=== PATIENT | female | born 1975 | race Caucasian/White ===

== ENCOUNTER 2017-12-01 21:18 | Emergency (ER) | payer MEDICAID, SELFPAY ==
[2017-12-01 21:19] VITALS: BP 164/116; PULSE 102; RESP 18; TEMP 36.4; O2SAT 98; BMI 38.7
--- NOTE | 2017-12-01 21:28 | RAD_ITS ---
STUDY: X-RAY - RIGHT HAND REASON FOR EXAM: Female, 42 years old. Injury, pain TECHNIQUE: 3 view(s) of the hand. COMPARISON: None. FINDINGS: The scaphoid appears resected. There is no acute fracture. There is no osseous destruction. RAD/Hand Min 3 Views IMPRESSION: No acute fracture Evidence of scaphoid resection Electronically Signed: Nirav Haas MD at 21:58 EDT Tel , Service support ,
[2017-12-01] MEDS: fentaNYL 100 MCG/2 ML Ampul 50 MCG IM (21:59)
[2017-12-01] MEDS: Ondansetron ODT 4 MG Tablet PO ×2 (21:59→22:56)
[2017-12-01 22:02] VITALS: PULSE 105; RESP 22; O2SAT 98
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
[2017-12-01] MEDS: oxyCODONE 5 MG Tablet 10 MG PO (22:45)
[2017-12-01] MEDS: oxyCODONE 5 MG Tablet PO (22:46)
[2017-12-01 22:56] VITALS: BP 156/94; PULSE 101; RESP 22; O2SAT 98
== END 2017-12-01 22:57 | disposition home or self-care (01) ==
LOC: ED 21:42
PROVIDERS: Emergency Provider Emergency Medicine
DX: M79.641 Pain in right hand (principal); S67.01XA Crushing injury of right thumb, initial encounter; W23.0XXA Caught, crushed, jammed, or pinched between moving objects, initial encounter; Y93.9 Activity, unspecified; Y92.89 Other specified places as the place of occurrence of the external cause; Y99.9 Unspecified external cause status; F17.200 Nicotine dependence, unspecified, uncomplicated
CPT/HCPCS: 73130; 96372; 99283

== ENCOUNTER 2017-12-04 16:06 | Emergency (ER) | payer MEDICAID, SELFPAY ==
[2017-12-04 16:07] VITALS: BP 126/98; PULSE 84; RESP 12; TEMP 36.6; O2SAT 98; BMI 37.5
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
--- NOTE | 2017-12-04 16:48 | ED.DEP ---
ED Disposition - Plan for ED Patient: Disposition: Home or Assisted Living Chief Complaint: Abscess Instructions: ED Hematoma Subungual Referrals: Care Physician,No Primary [Primary Care Provider] -
[2017-12-04 16:54] VITALS: RESP 16
--- NOTE | 2017-12-04 16:54 | ED.RN ---
REVIEWED D/C INSTRUCTIONS, FOLLOW UP CARE, AND S/S THAT WOULD WARRANT A RETURN TO THE ED WITH PT. PT VERBALIZED AN UNDERSTANDING AND DENIES FURTHER QUESTIONS FOR THIS RN. PT SKIN P/W/D, RESP EVEN AND UNLABORED, PT A&O X 3, NO DISTRESS NOTED. PT AMBULATED OUT OF ED, GAIT STEADY.
== END 2017-12-04 16:55 | disposition home or self-care (01) ==
LOC: ED 16:55
PROVIDERS: Emergency Provider Emergency Medicine
DX: S60.111D Contusion of right thumb with damage to nail, subsequent encounter (principal); W23.0XXD Caught, crushed, jammed, or pinched between moving objects, subsequent encounter; K21.9 Gastro-esophageal reflux disease without esophagitis; Z72.0 Tobacco use
CPT/HCPCS: 99282

== ENCOUNTER 2019-05-14 15:09 | Emergency (ER) | payer MEDICAID, SELFPAY ==
[2019-05-14 15:12] VITALS: BP 161/105; PULSE 98; RESP 18; TEMP 36.7; O2SAT 99; BMI 299.4
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
[2019-05-14] MEDS: Silver Sulfadiazine 1% Crm 50 gm Bottle 1 APPLIC TOPICAL (15:47)
[2019-05-14] MEDS: oxyCODONE 5 MG Tablet 10 MG PO (15:48)
[2019-05-14 16:02] VITALS: RESP 16
== END 2019-05-14 16:06 | disposition home or self-care (01) ==
LOC: ED 15:33
PROVIDERS: Emergency Provider Emergency Medicine; Family Provider Internal Medicine; PCP Internal Medicine
DX: T21.11XA Burn of first degree of chest wall, initial encounter (principal); T20.17XA Burn of first degree of neck, initial encounter; X12.XXXA Contact with other hot fluids, initial encounter; Y92.9 Unspecified place or not applicable; Y99.9 Unspecified external cause status; F17.200 Nicotine dependence, unspecified, uncomplicated; Z82.49 Family history of ischemic heart disease and other diseases of the circulatory system; Z88.0 Allergy status to penicillin; Z88.1 Allergy status to other antibiotic agents; Z88.5 Allergy status to narcotic agent
CPT/HCPCS: 99282

== ENCOUNTER 2019-08-16 10:44 | Emergency (ER) | payer MEDICAID, SELFPAY ==
[2019-08-16 10:44] VITALS: BP 161/103; PULSE 88; RESP 18; TEMP 36.6; O2SAT 98; BMI 34.5
--- NOTE | 2019-08-16 11:52 | ED.VIS.GEN ---
History of Present Illness Chief Complaint: Abd Pain Onset: Yesterday Narrative: Patient presents with upper abdominal pain. She tells me that for 10 years she has been diagnosed with a hiatal hernia. She tells me that yesterday she awoke with some discomfort in her epigastrium. She ate [employer] for lunch and afterwards still felt very hungry. She states that feels like there is a brick in her epigastrium that radiates into her back. She notes a tight band sensation extending from her epigastrium across the lower ribs. she is made herself vomit hoping that would help but it did not. No fevers. She had some diarrhea yesterday but none today. Patient still has her gallbladder. She has had prior ventral hernia repair and appendectomy. She sees Dr. Cid for general surgery. She denies any history of pancreatitis. Past Medical History - Allergies and Home Meds Allergies/Adverse Reactions: Allergies codeine Allergy (Verified 08/16/19 10:48) Anaphylaxis erythromycin base Allergy (Verified 08/16/19 10:48) Hives hydrocodone bitartrate [From Vicodin] Allergy (Verified 08/16/19 10:48) Anaphylaxis Penicillins Allergy (Verified 08/16/19 10:48) Rash morphine Adverse Reaction (Verified 08/16/19 10:48) Other JUST GETS EXTRA LOOPY Primary Care Physician: Rosa Maria Romero MD [Primary Care Provider] - As Needed Surgical History: noncontributory Smoking Status: Current some day smoker - Family History Maternal Family History: Family History (Last Reviewed 11/30/17 @ 10:16 by Dano Cid MD) Mother Arthritis Malignant hyperthermia due to anesthesia Daughter Asthma Father Arthritis Hypertension Family History: Reports: No pertinent history Paternal Family History: Family History (Last Reviewed 11/30/17 @ 10:16 by Dano Cid MD) Mother Arthritis Malignant hyperthermia due to anesthesia Daughter Asthma Father Arthritis Hypertension Family History: Reports: No pertinent history Sibling Family History: Family History (Last Reviewed 11/30/17 @ 10:16 by Dano Cid MD) Mother Arthritis Malignant hyperthermia due to anesthesia Daughter Asthma Father Arthritis Hypertension Family History: Reports: No pertinent history Review of Systems General: Denies: Chills, Fever, Sweats Eyes: Denies: Visual changes - bilaterally, Diplopia ENT: Denies: Rhinorrhea, Sore throat Cardiovascular: Denies: Chest pain, Palpitations Respiratory: Denies: Dyspnea, Cough, Dyspnea on exertion Gastrointestinal: Reports: Abdominal pain, Nausea, Vomiting, Diarrhea. Denies: Melena, Hematochezia Genitourinary: Denies: Dysuria, Hematuria, Frequency Musculoskeletal: Denies: Back pain, Extremity Pain Skin: Denies: Rash, Wounds Neurological: Denies: Headache, Weakness, Numbness Physical Exam Vital Signs/Narrative: Vital Signs Temp Pulse Resp BP Pulse Ox 08/16/19 10:44 97.8 F 88 18 161/103 H 98 Inital Vital Signs reviewed: Yes General: Well nourished, Well developed, Obese, No Acute Distress Head: Normocephalic, Atraumatic Eyes: Perrl, EOMI ENT: Moist mucous membranes, No rhinorrhea Neck: Supple, Nontender Cardiovascular: Regular rate, Regular rhythm, No murmurs Respiratory: No distress, CTA bilaterally, Chest nontender Abdomen: Soft, Nondistended, Normal bowel sounds, Tender Back: Nontender, Normal Inspection Extremities: Nontender, No edema Skin: Normal color, No rash Neurological: Alert, Oriented x3, Cranial nerves II-XII grossly intact, Normal Strength, Normal Sensation Psychological: Normal affect, Normal Mood Diagnostic/Tx/Re-eval - Medical Decision Making Basic labs were negative. CT abdomen pelvis does not show anything to explain the patient's pain. Will prescribe Carafate. She is already on Zantac and omeprazole. The patient did get some relief with GI cocktail. She is to talk with her surgeon about possible EGD. ED Disposition - Plan for ED Patient: Disposition: Home or Assisted Living Diagnosis: Abdominal pain Instructions: GASTRITIS vs. ULCER Prescriptions: Sucralfate [Carafate] 1 gm PO 4X/DAY #56 tab Prescription Printed Referrals: Rosa Maria Romero MD [Primary Care Provider] - As Needed
[2019-08-16] MEDS: Mag Hydrox/Al Hydrox/Simeth 30 ML UDC PO (11:57)
[2019-08-16 12:22] LABS: Absolute Lymphocyte Count 2.63 X10^3/uL (0.83-4.51); Absolute Neutrophil Count 9.3 X10^3/uL (2.0-7.7); Basophil# 0.03 X10^3/uL; Basophil% 0.2 % (0-1); Eosinophil# 0.39 X10^3/uL; Hematocrit 46.6 % (37-47); Lymphocyte # 2.63 X10^3/ul (4.0); Lymphocyte % 20.2 % (19-41); Mean Corp Hgb Conc 32.2 g/dL (32-36); Mean Corpuscular Hgb 30.1 pg (27.0-32.0); Mean Corpuscular Volume 93.4 fL (81-99); Monocyte# 0.59 X10^3/uL; Monocyte% 4.5 % (0-10); NRBC Flagged by Analyzer 0 % (0-5); Neutrophil # 9.33 X10^3/uL (2.7-7.7); Neutrophil % 71.6 % (47-70); Platelet Count 279 K/mm3 (150-450); RBC Distribution Width CV 13.4 % (11.6-14.6); RBC Distribution Width SD 45.9 fl (35.1-43.9); Red Blood Count 4.99 M/mm3 (4.2-5.4)
[2019-08-16 12:37] LABS: Internal QC Validated? YES +Cl - CLEAR BKGD; Pregnancy, Serum, hCG Quali. NEGATIVE Negative
[2019-08-16 12:50] LABS: ALB/GLOB Ratio 0.9 RATIO (0.9-2.4); AST(SGOT) 16 U/L (15-37); Alanine Aminotransfer ALT/SGPT 29 U/L (12-78); Albumin, Serum 3.7 g/dL (3.4-5.0); Alkaline Phosphatase 68 U/L (50-136); Anion Gap 4 (5-15); BUN 8 mg/dL (7-18); BUN/Creat Ratio 10.6 RATIO (10-20); Calcium,Total 9.6 mg/dL (8.5-10.1); Chloride 108 mmol/L (98-107); Creatinine, Serum 0.75 mg/dL (0.55-1.20); EST Glomerular Filtration Rate 90 mL/min (>60); Est Glom Filt Rate - Afr Amer 108 mL/min (>60); Estimated Creatinine Clearance 109.22 ml/min; Globulin 4.2 g/dL (2.3-3.5); Glucose 85 mg/dL (70-110); Lipase 125 U/L (73-393); Potassium 4.1 mmol/L (3.5-5.1); Protein, Total 7.9 g/dL (6.4-8.2); Sodium Level 138 mmol/L (136-145)
--- NOTE | 2019-08-16 13:00 | CT_ITS ---
STUDY: CT ABDOMEN AND PELVIS WITHOUT CONTRAST REASON FOR EXAM: Female, 44 years old. UPPER ABDOMINAL PAIN. RADIATION DOSAGE (If Supplied By Facility): CTDIvol = ( 14.68 ) mGy, DLP = ( 1050.09 ) mGycm TECHNIQUE: Transaxial images were obtained from the dome of the diaphragm to the symphysis pubis without oral contrast, and without intravenous contrast. Sagittal and coronal images were reconstructed. Individualized dose optimization techniques were used for this CT. COMPARISON: Comparison is made with prior study dated July 31, 2017. FINDINGS: The visualized lung bases are unremarkable. The visualized portions of the heart are within normal limits. Normal liver. Normal gallbladder and extrahepatic biliary system. Normal spleen. Normal pancreas. Normal bilateral adrenal glands. Normal right kidney. Normal left kidney. Normal visualized stomach. Normal small intestine. Normal colon. The appendix is visualized and appears normal. Normal abdominal aorta. Normal inferior vena cava. There is borderline retroperitoneal lymphadenopathy with enlarged nodes no greater than 10mm in the short axis diameter. Normal urinary bladder. IUD is seen within the endometrium. Small benign-appearing bilateral inguinal lymph nodes. There is a small umbilical hernia containing fat. The hernial sac measures 3.3 cm in transverse dimension. There is evidence of an anterior ventral hernia repair with mesh just distal to the umbilicus. Normal osseous structures. CT/Abdomen/Pelvis W IV Cont ONLY IMPRESSION: Umbilical hernia just cephalad to the hernial mesh. Electronically Signed: Benjamin Tomlinson, at 14:06 EST , Service support ,
[2019-08-16] MEDS: Ibuprofen 600 MG Tablet PO (14:09)
[2019-08-16 14:57] VITALS: BP 145/84; PULSE 73; RESP 16; O2SAT 99
== END 2019-08-16 14:58 | disposition home or self-care (01) ==
PROVIDERS: Emergency Provider Emergency Medicine; PCP Internal Medicine
DX: R10.10 Upper abdominal pain, unspecified (principal); F17.200 Nicotine dependence, unspecified, uncomplicated
CPT/HCPCS: 74177; 80053; 83605; 83690; 84703; 85025; 99283; Q9967; A4216

== ENCOUNTER 2023-09-04 23:19 | Emergency (ER) | payer MEDICAID, SELFPAY ==
--- NOTE | 2023-09-04 00:15 | RAD_ITS ---
INDICATION: trauma EXAMINATION/TECHNIQUE: X-RAY - RIGHT XR Femur Min 2 Views 5 VIEWS COMPARISON: No relevant prior comparison study available FINDINGS: SOFT TISSUES: No soft tissue swelling or gas. No radiopaque foreign body. BONES/JOINTS: No acute fracture or subluxation.. Normal alignment. Preservation of the joint space. Knee joint effusion suspected.. No sclerotic or destructive changes observed. RAD/Femur Min 2 Views IMPRESSION: No fracture or malalignment. Knee joint effusion suspected. Electronically Signed: Sourav Zambrano MD at 1:27 EST ,
[2023-09-04 23:20] VITALS: BP 168/106; PULSE 119; RESP 24; TEMP 36.8; O2SAT 94; BMI 37.5
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
[2023-09-04] MEDS: Ondansetron ODT 4 MG Tablet PO (23:32)
[2023-09-04] MEDS: Ketorolac 60 MG/2 ML Vial IM (23:32)
--- OUTSIDE RECORDS SUMMARY | 2023-09-04 23:47 | XMS RPT_ITS | CCD ---
Author Name Unknown Address [address] [place] [address] Organization [facility] Care Team Providers Care Machine Ii Coremaker Name Role Phone Yris Romero MD Primary Care Provider TALAMPAS, YRIS D Primary Care Unavailable TALAMPAS, YRIS D Attending Unavailable DANO CID Attending Unavailable TALAMPAS, YRIS D Primary Care Unavailable TALAMPAS, YRIS D Primary Care Unavailable LENORA, MARCELLE Referring Unavailable TALAMPAS, YRIS D Primary Care Unavailable LENORA, MARCELLE Referring Unavailable LENORA, MARCELLE Referring Unavailable TALAMPAS, YRIS D Primary Care Unavailable TALAMPAS, YRIS D Primary Care Unavailable LENORA, MARCELLE Attending Unavailable TALAMPAS, YRIS D Primary Care Unavailable LENORA, MARCELLE Attending Unavailable CHRISSY, DANO P Referring Unavailable TALAMPAS, YRIS D Primary Care Unavailable CHRISSYDANO P Attending Unavailable TALAMPAS, YRIS D Primary Care Unavailable TALAMPAS, YRIS D Referring Unavailable TALAMPAS, YRIS D Referring Unavailable TALAMPAS, YRIS D Primary Care Unavailable TALAMPAS, YRIS D Primary Care Unavailable TALAMPAS, YRIS D Attending Unavailable TALAMPAS, YRIS D Primary Care Unavailable TALAMPAS, YRIS D Attending Unavailable TALAMPAS, YRIS D Primary Care Unavailable STEPHANIE NOVA Attending Unavailable Yris Romero MD Primary Care Provider Allergies Allergy Classification Reported Allergen(s) Allergy Type Date of Onset Reaction(s) Facility (20 sources) Acetaminophen / HYDROcodone; Translations: [HYDROCODONE-ACET AMINOPHEN] Drug Allergy 8 Shortness of Breath [facility] Work Phone: (20 sources) Chlorhexidine; Translations: [CHLORHEXIDINE GLUCONATE] Drug Allergy 2 Other: See Comments [facility] (20 sources) Codeine; Translations: [CODEINE] Drug Allergy 6 [facility] Work Phone: (20 sources) egg extract; Translations: [EGG] Drug Allergy 8 GI Upset [facility] (20 sources) Erythromycin; Translations: [ERYTHROMYCIN] Drug Allergy 0 [facility] Work Phone: (20 sources) fentaNYL; Translations: [FENTANYL] Drug Allergy 5 GI Upset [facility] (20 sources) Grass pollen; Translations: [GRASS POLLEN] Drug Allergy 0 Shortness of Breath [facility] Work Phone: (20 sources) Morphine; Translations: [MORPHINE] Drug Allergy 9 Mental Status Change [facility] (3 sources) Penicillins; Translations: [PENICILLINS] Propensity to adverse reactions 6 Rash [facility] Work Phone: (20 sources) Sulfonamides (Antibiotic); Translations: [SULFA (SULFONAMIDE ANTIBIOTICS)] Drug Allergy 5 Mental Status Change [facility] (20 sources) Bee Sting; Translations: [BEE STING] Allergy to substance 0 Swelling [facility] Work Phone: (20 sources) Penicillins Propensity to adverse reactions 6 [facility] Work Phone: Medications Current Medications Medication Drug Class(es) Dates Sig (Normalized) Sig (Original) cholecalciferol 0.01 mg oral tablet (20 sources) Vitamin D Start: 07-24-2021 End: 06-13-2024 take 2 tablets by mouth once daily cholecalciferol (VITAMIN D3) 400 unit tab Take 2 tablets by mouth once daily. 60 tablet 11 06/14/2023 06/13/2024 Active Completed/Discontinued Medications Medication Drug Class(es) Dates Sig (Normalized) Sig (Original) acetaminophen 325 mg / oxyCODONE hydrochloride 5 mg oral tablet (2 sources) Opioid Agonist Start: 11-03-2022 End: 11-06-2022 take 1 tablet by mouth every eight hours as needed for pain oxyCODONE-acetami nophen (PERCOCET) 5-325 mg tablet Indications: Post-op pain , S/P hernia repair Take 1 tablet by mouth every 8 hours as needed for pain for up to 3 days. 5 tablet 0 11/03/2022 11/06/2022 Problems Active Problems Problem Classification Problem Date Documented Date Episodic/Chronic Anxiety disorders (20 sources) Anxiety disorder; Translations: [Anxiety disorder, unspecified] Onset: 05-13-2010 05-13-2010 Chronic Diseases of white blood cells (20 sources) Leukocytosis; Translations: [Elevated white blood cell count, unspecified] Onset: 08-06-2021 08-06-2021 Chronic Disorders usually diagnosed in infancy, childhood, or adolescence (20 sources) Attention deficit hyperactivity disorder, predominantly inattentive type; Translations: [Other specified behavioral and emotional disorders with onset usually occurring in childhood and adolescence] Onset: 12-24-2010 08-06-2021 Chronic Esophageal disorders (20 sources) Gastro-esophageal reflux disease with esophagitis; Translations: [Gastroesophageal reflux disease with esophagitis] Onset: 12-05-2009 Chronic Malaise and fatigue (1 source) Fatigue; Translations: [Chronic fatigue, unspecified] Chronic Menopausal disorders (20 sources) Abnormal perimenopausal bleeding; Translations: [Excessive bleeding in the premenopausal period] Onset: 06-01-2013 06-01-2013 Chronic Nausea and vomiting (2 sources) Nausea; Translations: [Nausea] Episodic Other endocrine disorders (20 sources) Polycystic ovary syndrome; Translations: [Polycystic ovarian syndrome] Onset: 02-20-2011 02-20-2011 Chronic Other nervous system disorders (1 source) Postoperative pain ; Translations: [Other acute postprocedural pain] Episodic Other nutritional; endocrine; and metabolic disorders (18 sources) Obesity; Translations: [Other obesity due to excess calories] Onset: 05-13-2010 08-06-2021 Chronic Other nutritional; endocrine; and metabolic disorders (2 sources) Excess panniculus of abdomen; Translations: [Localized adiposity] Chronic Other nutritional; endocrine; and metabolic disorders (6 sources) Obesity caused by energy imbalance; Translations: [Other obesity due to excess calories] Onset: 05-13-2010 08-06-2021 Chronic Other nutritional; endocrine; and metabolic disorders (1 source) Localized adiposity; Translations: [Abdominal pannus] Onset: 09-18-2022 Chronic Residual codes; unclassified (1 source) Body fluid retention; Translations: [Edema, unspecified] Episodic Residual codes; unclassified (1 source) History of hernia repair; Translations: [Other specified postprocedural states] Episodic Substance-related disorders (20 sources) Smoker; Translations: [Nicotine dependence, unspecified, uncomplicated] Onset: 08-06-2021 08-06-2021 Chronic Past or Other Problems Problem Classification Problem Date Documented Da te Episodic/Chronic Abdominal hernia (3 sources) Umbilical hernia; Translations: [Umbilical hernia without obstruction or gangrene] Onset: 09-18-2022 Episodic Abdominal pain (1 source) Unspecified abdominal pain; Translations: [Abdominal cramping] Onset: 11-20-2022 Episodic Complications of surgical procedures or medical care (1 source) Infection following a procedure, other surgical site, initial encounter; Translations: [Incisional infection] Onset: 11-20-2022 Episodic Other aftercare (1 source) Encounter for other specified aftercare; Translations: [Aftercare] Onset: 11-26-2022 Episodic Other aftercare (1 source) Other ferry terminal agent (current) drug therapy; Translations: [Encounter for long-term current use of medication] Onset: 09-15-2022 Episodic Other gastrointestinal disorders (1 source) Personal history of other diseases of the digestive system; Translations: [S/P hernia repair] Onset: 11-20-2022 Episodic Other nervous system disorders (1 source) Other acute postprocedural pain; Translations: [Post-op pain] Onset: 11-20-2022 Episodic Other screening for suspected conditions (not mental disorders or infectious disease) (7 sources) Patient encounter status; Translations: [Encounter for screening mammogram for malignant neoplasm of breast] Onset: 09-15-2022 Episodic Peritonitis and intestinal abscess (2 sources) Infectious disease of abdomen; Translations: [Peritonitis, unspecified] Onset: 11-20-2022 11-20-2022 Episodic Residual codes; unclassified (1 source) Other specified postprocedural states; Translations: [S/P hernia repair] Onset: 11-20-2022 Episodic Varicose veins of lower extremity (20 sources) Pain co-occurrent and due to varicose veins of left leg; Translations: [Varicose veins of left lower extremity with pain] Onset: 08-06-2021 08-06-2021 Episodic Results Test Name Value Interpretation Reference Range Facil ity Vital Signs Date Time Vital Sign Value Performing Clinician Eladio becerril 03-16-2023 11:48-0400 Diastolic blood pressure 98 mm[Hg] Stephanie Avtar DOOR CORE ASSEMBLER.REGISTERED ASSOCIATE Work Phone: [facility] 03-16-2023 11:48-0400 Systolic blood pressure 140 mm[Hg] Stephanie Avtar DOOR CORE ASSEMBLER.REGISTERED ASSOCIATE Work Phone: [facility] 03-16-2023 11:46-0400 Body weight 117.94 kg Stephanie Avtar DOOR CORE ASSEMBLER.REGISTERED ASSOCIATE Work Phone: [facility] 03-16-2023 11:46-0400 Heart rate 101 /min Stephanie Avtar DOOR CORE ASSEMBLER.REGISTERED ASSOCIATE Work Phone: [facility] 03-16-2023 11:46-0400 SaO2% (BldA) [Mass fraction] 98 % Stephanie Avtar DOOR CORE ASSEMBLER.REGISTERED ASSOCIATE Work Phone: [facility] 11-03-2022 09:10-0400 Body height 180.3 cm Marcelle Morehouse PA-C Work Phone: [facility] 11-03-2022 09:10-0400 Body temperature 97.5 [degF] Marcelle Morehouse PA-C Work Phone: [facility] 11-03-2022 09:10-0400 Body weight 113.4 kg Marcelle Morehouse PA-C Work Phone: [facility] 11-03-2022 09:10-0400 Diastolic blood pressure 85 mm[Hg] Marcelle Lenora PA-C Work Phone: [facility] 11-03-2022 09:10-0400 Heart rate 106 /min Marcelle Lenora PA-C Work Phone: [facility] 11-03-2022 09:10-0400 SaO2% (BldA) [Mass fraction] 98 % Marcelle Lenora PA-C Work Phone: [facility] 11-03-2022 09:10-0400 Systolic blood pressure 140 mm[Hg] Marcelle Cooley PA-C Work Phone: [facility] 10-22-2022 12:35-0400 Body height 180.3 cm [facility] 10-22-2022 12:35-0400 Body weight 113.4 kg [facility] 09-18-2022 10:02-0500 Body height 177.8 cm Dano Cid MD Work Phone: [facility] 09-18-2022 10:02-0500 Body temperature 97.2 [degF] Dano Cid MD Work Phone: [facility] 09-18-2022 10:02-0500 Body weight 117.94 kg Dano Cid MD Work Phone: [facility] 09-18-2022 10:02-0500 Diastolic blood pressure 88 mm[Hg] Dano Cid MD Work Phone: [facility] 09-18-2022 10:02-0500 Heart rate 110 /min Dano Cid MD Work Phone: [facility] 09-18-2022 10:02-0500 SaO2% (BldA) [Mass fraction] 97 % Dano Cid MD Work Phone: [facility] 09-18-2022 10:02-0500 Systolic blood pressure 158 mm[Hg] Dano Cid MD Work Phone: [facility] 09-15-2022 08:02-0500 Body temperature 96.3 [degF] Yris Romero MD Work Phone: [facility] 09-15-2022 08:02-0500 Body weight 119.3 kg Yris Romero MD Work Phone: [facility] 09-15-2022 08:02-0500 Diastolic blood pressure 88 mm[Hg] Yris Romero MD Work Phone: [facility] 09-15-2022 08:02-0500 Heart rate 89 /min Yris Romero MD Work Phone: [facility] 09-15-2022 08:02-0500 Respiratory rate 18 /min Yris Romero MD Work Phone: [facility] 09-15-2022 08:02-0500 SaO2% (BldA) [Mass fraction] 98 % Yris Romero MD Work Phone: [facility] 09-15-2022 08:02-0500 Systolic blood pressure 152 mm[Hg] Yris Romero MD Work Phone: [facility] 03-24-2022 08:02-0400 Body weight 114.31 kg Yris Romero MD Work Phone: [facility] 03-24-2022 08:02-0400 Diastolic blood pressure 88 mm[Hg] Yris Romero MD Work Phone: [facility] 03-24-2022 08:02-0400 Heart rate 84 /min Yris Romero MD Work Phone: [facility] 03-24-2022 08:02-0400 SaO2% (BldA) [Mass fraction] 97 % Yris Romero MD Work Phone: [facility] 03-24-2022 08:02-0400 Systolic blood pressure 136 mm[Hg] Yris Romero MD Work Phone: [facility] Encounters Encounter Date Encounter Type Care Provider Facility Start: 08-20-2023 Refill Yris grossman MD Work Phone: [facility] [place] Procedures Date Procedure Procedure Detail Performing Clinician Start: 11-20-2022 Ct abdomen & pelvis w/contrast material Marcelle Cooley PA-C Work Phone: Start: 09-15-2022 Lipid 1996 panel - S candido or Plasma Stephanie Nova DOOR CORE ASSEMBLER.REGISTERED ASSOCIATE Work Phone: Start: 03-31-2021 Adult depression screening assessment Yris Romero MD Work Phone: Plan of Treatment Date Care Activity Detail Author Start: 10-21-2028 Urine microalbumin profile [facility] Start: 09-16-2027 Lipid 1996 panel - S candido or Plasma Lipid Screening [facility] Start: 09-16-2027 Lipid panel Lipid Screening [facility] Start: 09-16-2027 LIPID SCREEN LIPID SCREEN [facility] Start: 11-20-2025 DIABETES SCREEN DIABETES SCREEN [facility] Start: 11-20-2025 Diabetes Screening Diabetes Screenin g [facility] Start: 09-15-2025 DIABETES SCREEN DIABETES SCREEN [facility] Start: 08-06-2024 DIABETES SCREEN DIABETES SCREEN [facility] Start: 12-16-2023 HEPATITIS B (1 of 3 - 3-dose series) HEPATITIS B (1 of 3 - 3-dose series) [facility] Immunizations Immunization Date Immunization Notes Care Provider Winnie arteaga 03-24-2022 pneumococcal (PCV20) vaccine, 20 valent (PREVNAR 20) Yris Romero MD Work Phone: [facility] 03-24-2022 pneumococcal Conjuga te, unspecified formulation Yris Romero MD Work Phone: [facility] Work Phone: 09-25-2020 influenza, injectabl e, quadrivalent, contains preservative Yris Romero MD Work Phone: [facility] 09-25-2020 influenza virus vacc ine, unspecified formulation Stephanie Nova APRN.CNP Work Phone: [facility] 03-16-2019 Influenza, injectabl e, Madin Mary Canine Kidney, preservative free, quadrivalent Yris Romero MD Work Phone: [facility] 10-21-2018 pneumococcal polysaccharide vaccine, 23 valent Yris Romero MD Work Phone: [facility] 10-21-2018 tetanus toxoid, redu fatmata diphtheria toxoid, and acellular pertussis vaccine, adsorbed Yris Romero MD Work Phone: [facility] 04-17-2018 Influenza, injectabl e, Madin Mary Canine Kidney, preservative free, quadrivalent Yris Romero MD Work Phone: [facility] 02-22-2017 influenza, injectabl e, quadrivalent, preservative free Yris Romero MD Work Phone: [facility] 02-21-2016 influenza, injectabl e, quadrivalent, contains preservative Yris Romero MD Work Phone: [facility] 04-11-2015 influenza, injectabl e, quadrivalent, contains preservative Yris Romero MD Work Phone: [facility] 05-09-2014 influenza, injectabl e, quadrivalent, preservative free Yris Romero MD Work Phone: [facility] Work Phone: 05-27-2013 influenza virus vacc ine, unspecified formulation Yris Romero MD Work Phone: [facility] 06-28-2012 influenza virus vacc ine, unspecified formulation Yris Romero MD Work Phone: [facility] Work Phone: 06-16-2010 influenza virus vacc ine, unspecified formulation Yris Romero MD Work Phone: [facility] 05-16-2008 influenza virus vacc ine, unspecified formulation Yris Romero MD Work Phone: [facility] Work Phone: 07-30-2005 measles, mumps and rubella virus vaccine Yris Romero MD Work Phone: [facility] Work Phone: Payers Date Payer Category Payer Medicaid [id number] 2022 Medicaid [id number] 2013 Medicaid [facility] MEDICAID [id number] 2013-Present [phone] [address] [place] [address] Medicaid [id number] 2013 Medicaid [id number] Social History Date Type Detail Facility Start: 08-09-2014 End: 10-22-2022 Tobacco smoking status NHIS Occasional tobacco smoker [facility] Work Phone: History of tobacco use Cigarette Smoker C [facility] Work Phone: Start: 08-09-2014 End: 10-22-2022 Tobacco use and exposure Smokeless tobacco non-user [facility] Work Phone: Start: 09-23-2021 End: 06-14-2023 Alcohol intake Current drinker of alcohol (finding) [facility] Start: 04-02-2020 End: 06-16-2022 History SDOH Alcohol Frequency 2 [facility] Start: 12-25-2019 End: 06-16-2022 History SDOH Alcohol Std Drinks 1 [facility] Start: 04-02-2020 End: 06-16-2022 History SDOH Alcohol Binge 98 [facility] Start: 08-09-2014 History SDOH Alcohol Comment Occasionally [facility] Start: 04-02-2020 End: 06-16-2022 History SDOH Social Connections Phone 5 [facility] Start: 04-02-2020 End: 06-16-2022 History SDOH Social Connections Get Together 3 [facility] Start: 04-02-2020 History SDOH Social Connections Living 7 [facility] Start: 04-02-2020 History SDOH Physical Activity MPS 4 [facility] Start: 12-25-2019 Education 12 [facility] Start: 08-09-2014 End: 09-18-2022 Tobacco Comment Someday smoker [facility] Start: 1975 Sex Assigned At Female [facility] Start: 12-16-2021 End: 03-24-2022 Exposure to SARS-CoV-2 (event) Not sure [facility] Start: 06-16-2022 History SDOH Social Connections Living 8 [facility] Start: 10-22-2022 End: 11-20-2022 Alcohol intake [facility] Start: 10-22-2022 Tobacco Comment 3-4 days per week [facility] Start: 10-22-2022 Alcohol Comment 2-3 times per week [facility] Start: 06-16-2022 End: 11-20-2022 Social connection and isolation panel [facility] Do you belong to any clubs or organizations such as anglican groups, unions, fraternal or athletic groups, or school groups? Yes [facility] Are you now , , , , never or living with a partner? Living with partner [facility] How often to you hav e a drink containing alcohol? Monthly or less [facility] How many standard dr inks containing alcohol do you have on a typical day? 3 or 4 [facility] How often do you hav e 6 or more drinks on 1 occasion? Never [facility] How hard is it for y ou to pay for the very basics like food, housing, medical care, and heating Not hard at all [facility] Do you feel stress - tense, restless, nervous, or anxious, or unable to sleep at night because your mind is troubled all the time - these days [OSQ] Only a little [facility] (I/We) worried wheth er (my/our) food would run out before (I/we) got money to buy more. Never true [facility] In the past 12 month s, was there a time when you were not able to pay the mortgage or rent on time? No [facility] Start: 09-27-2019 Gender identity Identifies as female gender (finding) [facility] Start: 09-27-2019 Sexual orientation Heterosexual (finding) [facility] Medical Equipment Procedure Code Equipment Code Equipment Origin al Text Equipment Identifier Dates Mesh Parietex 8. 6cm Small Collagen Surgical Patch Self Center Composite - [id number] Start: 10-28-2022 Clinical Notes 08-08-2021 to 08-20-2023 Telephone Encounter - Yris Romero MD - 08/20/2023 6:37 PM ESTTelephone Encounter - Renetta Serrano LPN - 08/20/2023 2:56 PM Stephanie Srinivasan APRN.IESHA - 03/16/2023 12:00 PM EDT Note Date & Type Note Facility 08-20-2023 Miscellaneous Notes The following approved medication requests have been transmitted electronically. Requested Prescriptions Signed Prescriptions Disp Refills methylphenidate CD (METADATE CD) 40 mg biphasic capsule 30 capsule 0 Sig: Take 1 capsule by mouth once daily for 30 days. Do not start before August 21, 2023. Authorizing Provider: YRIS ROMERO MD Patient has been identified by name and date of : Patient phones for refill(s): Requested Prescriptions Pending Prescriptions Disp Refills methylphenidate CD (METADATE CD) 40 mg biphasic capsule 30 capsule 0 Sig: Take 1 capsule by mouth once daily for 30 days. Date of last office visit in primary care: 06/14/2023 Date of next office visit in primary care: 09/06/2023 [facility] has [facility] stock right now, not sure for how long. Please advise. Thank you. Renetta Serrano LPN. documented in this encounter [facility] 06-21-2023 Miscellaneous Notes Patient aware script sent to [facility] pharmacy. Attempted to reach pt to let her know medication was sent without success. No Voicemail set up. Try later. Sabiha Ingram LPN The following approved medication requests have been transmitted electronically. Requested Prescriptions Signed Prescriptions Disp Refills methylphenidate CD (METADATE CD) 40 mg biphasic capsule 30 capsule 0 Sig: Take 1 capsule by mouth once daily for 30 days. Authorizing Provider: YRIS ROMERO MD Patient reports [facility] is out of stock of [facility]. [facility] they have it if pcp can send Rx soon. Pended. documented in this encounter [facility] 06-14-2023 Note HNO ID: [id number] Author: YRIS ROMERO MD Service: ? Author Type: Physician Type: Progress Notes Filed: 07/17/2023 00:59 Note Text: This note was created using [employer]. Subjective Magui Wylie is a 47 year old female. Patient presents with: F/U 3 Month SUBJECTIVE: Magui Wylie is a 47 year old year old lady here today for 3 month follow up appointment for review of medical conditions. Noted back issues with play issues the past 4 nights. Chronic back issues noted. Usually can take care of on her own. Has adjustable bed. Noted metformin and aldactone make her tired. Issues with ADD meds and supplies at pharmacy. Wonders if current med is adequate amount her pill. Having increased problems with focus. Kids 18,15, and 11. Lots of activities. Sometimes not getting enough sleep with sports journalist awakening or trouble falling asleep. PAST MEDICAL HISTORY Diagnosis Date Abdominal pain, other specified site Anxiety Attention deficit disorder without mention of hyperactivity Delayed emergence from general anesthesia Dysthymic disorder Depression (non-psychotic). Endometriosis Esophageal reflux Fasciitis feet Incarcerated ventral hernia 09/13/2014 Nausea with vomiting PCOS (polycystic ovarian syndrome) 02/20/2011 [facility]H - PAST MEDICAL HISTORY OF 1991 RHEUMATIC FEVER PONV (postoperative nausea and vomiting) Varicose vein Current Outpatient Medications Medication Sig methylphenidate CD (METADATE CD) 40 mg biphasic capsule Take 1 capsule by mouth once daily for 30 days. benzocaine (ANBESOL) 10 % liqd Use 1 application as instructed every 6 hours as needed. famotidine (PEPCID) 20 mg tablet Take 1 tablet by mouth twice daily. methylphenidate CD (METADATE CD) 40 mg biphasic capsule Take 1 capsule by mouth once daily for 30 days. Do not start before May 14, 2023. omeprazole (PRILOSEC) 40 mg capsule Take 1 capsule by mouth twice daily before meals. ondansetron orally disintegrating (ZOFRAN ODT) 4 mg disintegrating tablet Take 1-2 tablets by mouth every 8 hours as needed for nausea/vomiting. spironolactone (ALDACTONE) 25 mg tablet Take 1 tablet by mouth once daily as needed (fluid retention). cholecalciferol (VITAMIN D3) 400 unit tab Take 2 tablets by mouth once daily. metFORMIN ER (GLUCOPHAGE XR) 500 mg 24 hr tablet Take 2 tablets by mouth once daily. lidocaine (LIDODERM) 5 % Apply 1 Patch as directed every 24 hours. Remove after 12 hours. Location: wrist levonorgestrel (MIRENA) 21 mcg/24 hours (8 yrs) 52 mg IUD 1 Each by INTRAUTERINE route one time only. No current facility-administered medications for this visit. Review of Systems Objective LMP 04/11/2013 Physical Exam Constitutional: Appearance: Normal appearance. HENT: Head: Normocephalic. Eyes: Conjunctiva/sclera: Conjunctivae normal. Cardiovascular: Rate and Rhythm: Normal rate and regular rhythm. Heart sounds: Normal heart sounds. Pulmonary: Effort: Pulmonary effort is normal. Breath sounds: Normal breath sounds. Musculoskeletal: Right lower leg: No edema. Left lower leg: No edema. Skin: General: Skin is warm and dry. Neurological: General: No focal deficit present. Mental Status: She is alert and oriented to person, place, and time. Psychiatric: Attention and Perception: Attention and perception normal. Mood and Affect: Mood and affect normal. Speech: Speech normal. Behavior: Behavior normal. Thought Content: Thought content normal. Judgment: Judgment normal. No new labs done. Last labs: Component Latest Ref Rng AND Units 09/15/2022 11/20/2022 WBC 3.70 - 11.00 k/uL 16.98 (H) 12.26 (H) RBC 3.90 - 5.20 m/uL 5.33 (H) 5.19 Hemoglobin 11.5 - 15.5 g/dL 16.2 (H) 15.8 (H) Hematocrit 36.0 - 46.0 % 50.9 (H) 47.5 (H) MCV 80.0 - 100.0 fL 95.5 91.5 MCH 26.0 - 34.0 pg 30.4 30.4 MCHC 30.5 - 36.0 g/dL 31.8 33.3 RDW-CV 11.5 - 15.0 % 13.8 13.6 Platelet Count 150 - 400 k/uL 316 327 MPV 9.0 - 12.7 fL 9.2 9.1 Neut% % 73.7 66.6 Abs Neut (ANC) 1.45 - 7.50 k/uL 12.52 (H) 8.16 (H) Lymph% % 17.3 22.8 Abs Lymph 1.00 - 4.00 k/uL 2.94 2.80 Campbell% % 5.5 5.3 Abs Campbell <0.87 k/uL 0.94 (H) 0.65 Eosin% % 2.6 4.4 Abs Eosin <0.46 k/uL 0.44 0.54 (H) Baso% % 0.5 0.5 Abs Baso <0.11 k/uL 0.08 0.06 Immature Gran % % 0.4 0.4 IMMATURE GRANS (ABS) <0.10 k/uL 0.06 0.05 NRBC /100 WBC 0.0 0.0 Absolute nRBC <0.01 k/uL <0.01 <0.01 DTYPE Auto Auto Protein, Total 6.3 - 8.0 g/dL 7.4 Albumin 3.9 - 4.9 g/dL 4.5 Calcium 8.5 - 10.2 mg/dL 9.8 9.2 Bilirubin, Total 0.2 - 1.3 mg/dL 0.4 Alkaline Phosphatase 34 - 123 U/L 78 AST 13 - 35 U/L 24 ALT 7 - 38 U/L 23 Glucose 74 - 99 mg/dL 102 (H) 111 (H) BUN 7 - 21 mg/dL 8 8 Creatinine 0.58 - 0.96 mg/dL 0.74 0.77 Sodium 136 - 144 mmol/L 140 138 Potassium 3.7 - 5.1 mmol/L 4.7 4.3 Chloride 97 - 105 mmol/L 104 103 CO2 22 - 30 mmol/L 25 26 Anion Gap 9 - 18 mmol/L 11 9 eGFR >=60 mL/min/1.73mA? 102 9 (more content not included)... [facility] 04-19-2023 Miscellaneous Notes [facility] website checked and validated. All prescriptions have been APPROPRIATELY filled. No suspicious activity was identified. 04/19/2023 by Stephanie Nova APRN.IESHA Pt states [facility] has these in stock right now and is asking if medication can be moved over there. They told her they have a limited supply. Patient has been identified by name and date of : Yes, Provider Dr Romero Date 04/19/23 Time 1125. Patient phones for refill(s): Requested Prescriptions Pending Prescriptions Disp Refills methylphenidate CD (METADATE CD) 40 mg biphasic capsule 30 capsule 0 Sig: Take 1 capsule by mouth once daily for 30 days. Date of last office visit in primary care: 03/16/23 Future visit: 06/14/23 Last 2 Encounter Wt Readings: Date: Wt: 03/16/2023 117.9 kg (260 lb) 12/15/2022 118.4 kg (261 lb) Previous labs/tests for medication: Blood Pressure: BUN (mg/dL) Date Value 11/20/2022 8 08/06/2021 7 Sodium (mmol/L) Date Value 11/20/2022 138 08/06/2021 140 Last 1 Encounter BP Readings: Date: BP: 03/16/2023 140/98 Liver Function: ALT (U/L) Date Value 09/15/2022 23 07/03/2020 23 AST (U/L) Date Value 09/15/2022 24 07/03/2020 23 Please advise. Thank you. Marcelle Cruz, RN documented in this encounter [facility] 03-24-2023 Miscellaneous Notes Will send for benzocaine TC mikaela [place], she did check with pharmacy, Lidocaine is on backorder, hoping to have back in stock at the end of March. Patient did check several pharmacies, out of stock. Asking if there is something else that cane be prescribed. Maria Luisa Gallardo LPN TC mikaela [facility], pharmacy still has the prescription on hold for Patient to fill, pharmacy does not have Lidocaine in stock, still on back order. TC to Magui, she is waiting for [facility] to call her when it is back in stock. Magui was going to call [facility] re: another RX, she is going to ask if they have it and do a 1x transfer. Maria Luisa Gallardo LPN Attempted to contact pharmacy with no answer after holding for 10 minutes. Can we check with pharmacy if they have any alternatives available for this? Pt seen yesterday. Please note message from pharmacy. They note this is on back order. Change? documented in this encounter [facility] 03-16-2023 Note HNO ID: [id number] Author: Stephanie Nova APRN.IESHA Service: ? Author Type: Nurse Practitioner Type: Progress Notes Filed: 03/16/2023 12:50 PM Note Text: SUBJECTIVE Magui Wylie is a 47 year old female here today for a check up on her medical problems. Chief Complaint Patient presents with: F/U 3 Month HPI Magui Wylie is a 47 year old female established patient of Dr. Romero. Here today for her 3 month follow up for ADD. Currently on metadate for this and doing well. Helping with concentration and completing of tasks. She denies any issues with any side effects. No signs of misuse or abuse. Blood pressure runs better outside of here. Overall she is doing well. Her medications were reviewed today and her list is now up to date. Medications Current Outpatient Medications Medication Sig Methylphenidate (METADATE CD) 40 mg CD capsule Take 1 capsule by mouth once daily for 30 days. omeprazole (PRILOSEC) 40 mg capsule Take 1 capsule by mouth twice daily before meals. ondansetron orally disintegrating (ZOFRAN ODT) 4 mg disintegrating tablet Take 1-2 tablets by mouth every 8 hours as needed for nausea/vomiting. spironolactone (ALDACTONE) 25 mg tablet Take 1 tablet by mouth once daily as needed (fluid retention). cholecalciferol (VITAMIN D3) 400 unit tab Take 2 tablets by mouth once daily. metFORMIN ER (GLUCOPHAGE XR) 500 mg 24 hr tablet Take 2 tablets by mouth once daily. lidocaine (LIDODERM) 5 % Apply 1 Patch as directed every 24 hours. Remove after 12 hours. Location: wrist levonorgestrel (MIRENA) 21 mcg/24 hours (8 yrs) 52 mg IUD 1 Each by INTRAUTERINE route one time only. famotidine (PEPCID) 20 mg tablet Take 1 tablet by mouth twice daily. LIDOCAINE VISCOUS 2 % solution Take 5 mL by mouth as needed. Methylphenidate (METADATE CD) 40 mg CD capsule Take 1 capsule by mouth once daily for 30 days. Do not start before January 14, 2023. Methylphenidate (METADATE CD) 40 mg CD capsule Take 1 capsule by mouth once daily for 30 days. Do not start before February 13, 2023. No current facility-administered medications for this visit. ALLERGIES Allergen Reactions Bee Sting Swelling Chlorhexidine Gluco* Other: See Comments Skin felt like it was burning on fire. Codeine heart pounds Eggs [Egg] GI Upset Emycin [Erythromyci* Fentanyl GI Upset Grass Pollen Shortness of Breath Morphine Mental Status Change Penicillins Rash Sulfa (Sulfonamide * Mental Status Change Vicodin [Hydrocodon* Shortness of Breath HEART PALPITATIONS,SWEATING,WHEEZING ACTIVE PROBLEM LIST Add (Attention Deficit Disorder) - 12/24/2010 (Very Severe priority) Comment: Drug screen NEGATIVE for Rx'd amphetamine 12/2010 --- medication stopped, until further visit to discuss other options Gastroesophageal Reflux Disease Without Esophagitis - 12/05/2009 (A priority) Comment: Hiatal hernia, distal esophagitis --- EGD 11/2009, Dr. Tc Wilhelm Routine Gynecological Examination - 05/13/2010 (B priority, Chronic) Comment: [facility] [place] Class 2 Obesity Due to Excess Calories Without Serious Comorbidity With Body Mass Index (Bmi) of 39.0 to 39.9 in Adult - 05/13/2010 (B priority) Comment: Back to childhood Leukocytosis - 08/06/2021 Current Smoker - 08/06/2021 Varicose Veins of Left Lower Extremity With Pain - 08/06/2021 Perimenopausal Menorrhagia - 06/01/2013 Pcos (Polycystic Ovarian Syndrome) - 02/20/2011 Anxiety Disorder - 05/13/2010 Social History Tobacco Use Smoking status: Some Days Years: 13 Types: Cigarettes Smokeless tobacco: Never Tobacco comments: 3-4 days per week Vaping Use Vaping Use: Never used Substance Use Topics Alcohol use: Yes Alcohol/week: 10.0 standard drinks of alcohol Types: 10 Cans of Beer (12oz) per week Comment: 2-3 times per week Drug use: No Review of Systems Respiratory: Negative. Cardiovascular: Negative. OBJECTIVE BP 140/98 Pulse 101 Wt 260 lb (117.9kg) SpO2 98% LMP 04/11/2013 Physical Exam Vitals and nursing note reviewed. Constitutional: General: She is awake. She is not in acute distress. Appearance: Normal appearance. She is well-developed and well-groomed. She is not ill-appearing, toxic-appearing or diaphoretic. HENT: Head: Normocephalic. Right Ear: External ear normal. Left Ear: External ear normal. Nose: Nose normal. Eyes: General: Vision grossly intact. Conjunctiva/sclera: Conjunctivae normal. Pupils: Pupils are equal, round, and reactive to light. Neck: Vascular: No JVD. Trachea: Trachea normal. Pulmonary: Effort: Pulmonary effort is normal. No accessory muscle usage, prolonged expiration or respiratory distress. Musculoskeletal: Cervical back: Neck supple. Skin: General: Skin is warm and dry. Capillary Refill: Capillary refill takes less than 2 seconds. Neurological: General: No focal deficit present. Mental Status: She is alert and oriented to person, (more content not included)... [facility] 03-16-2023 History of Presen t illness Narrative SUBJECTIVE Magui Wylei is a 47 year old female here today for a check up on her medical problems. Chief Complaint Patient presents with: F/U 3 Month HPI Magui Wylie is a 47 year old female established patient of Dr. Romero. Here today for her 3 month follow up for ADD. Currently on metadate for this and doing well. Helping with concentration and completing of tasks. She denies any issues with any side effects. No signs of misuse or abuse. Blood pressure runs better outside of here. Overall she is doing well. Her medications were reviewed today and her list is now up to date. Medications Current Outpatient Medications Medication Sig Methylphenidate (METADATE CD) 40 mg CD capsule Take 1 capsule by mouth once daily for 30 days. omeprazole (PRILOSEC) 40 mg capsule Take 1 capsule by mouth twice daily before meals. ondansetron orally disintegrating (ZOFRAN ODT) 4 mg disintegrating tablet Take 1-2 tablets by mouth every 8 hours as needed for nausea/vomiting. spironolactone (ALDACTONE) 25 mg tablet Take 1 tablet by mouth once daily as needed (fluid retention). cholecalciferol (VITAMIN D3) 400 unit tab Take 2 tablets by mouth once daily. metFORMIN ER (GLUCOPHAGE XR) 500 mg 24 hr tablet Take 2 tablets by mouth once daily. lidocaine (LIDODERM) 5 % Apply 1 Patch as directed every 24 hours. Remove after 12 hours. Location: wrist levonorgestrel (MIRENA) 21 mcg/24 hours (8 yrs) 52 mg IUD 1 Each by INTRAUTERINE route one time only. famotidine (PEPCID) 20 mg tablet Take 1 tablet by mouth twice daily. LIDOCAINE VISCOUS 2 % solution Take 5 mL by mouth as needed. Methylphenidate (METADATE CD) 40 mg CD capsule Take 1 capsule by mouth once daily for 30 days. Do not start before January 14, 2023. Methylphenidate (METADATE CD) 40 mg CD capsule Take 1 capsule by mouth once daily for 30 days. Do not start before February 13, 2023. No current facility-administered medications for this visit. ALLERGIES Allergen Reactions Bee Sting Swelling Chlorhexidine Gluco* Other: See Comments Skin felt like it was burning on fire. Codeine heart pounds Eggs [Egg] GI Upset Emycin [Erythromyci* Fentanyl GI Upset Grass Pollen Shortness of Breath Morphine Mental Status Change Penicillins Rash Sulfa (Sulfonamide * Mental Status Change Vicodin [Hydrocodon* Shortness of Breath HEART PALPITATIONS,SWEATING,WHEEZING ACTIVE PROBLEM LIST Add (Attention Deficit Disorder) - 12/24/2010 (Very Severe priority) Comment: Drug screen NEGATIVE for Rx'd amphetamine 12/2010 --- medication stopped, until further visit to discuss other options Gastroesophageal Reflux Disease Without Esophagitis - 12/05/2009 (A priority) Comment: Hiatal hernia, distal esophagitis --- EGD 11/2009, Dr. Tc Wilhelm Routine Gynecological Examination - 05/13/2010 (B priority, Chronic) Comment: [facility], [facility] [place] Class 2 Obesity Due to Excess Calories Without Serious Comorbidity With Body Mass Index (Bmi) of 39.0 to 39.9 in Adult - 05/13/2010 (B priority) Comment: Back to childhood Leukocytosis - 08/06/2021 Current Smoker - 08/06/2021 Varicose Veins of Left Lower Extremity With Pain - 08/06/2021 Perimenopausal Menorrhagia - 06/01/2013 Pcos (Polycystic Ovarian Syndrome) - 02/20/2011 Anxiety Disorder - 05/13/2010 Social History Tobacco Use Smoking status: Some Days Years: 13 Types: Cigarettes Smokeless tobacco: Never Tobacco comments: 3-4 days per week Vaping Use Vaping Use: Never used Substance Use Topics Alcohol use: Yes Alcohol/week: 10.0 standard drinks of alcohol Types: 10 Cans of Beer (12oz) per week Comment: 2-3 times per week Drug use: No Review of Systems Respiratory: Negative. Cardiovascular: Negative. OBJECTIVE BP 140/98 Pulse 101 Wt 260 lb (117.9kg) SpO2 98% LMP 04/11/2013 Physical Exam Vitals and nursing note reviewed. Constitutional: General: She is awake. She is not in acute distress. Appearance: Normal appearance. She is well-developed and well-groomed. She is not ill-appearing, toxic-appearing or diaphoretic. HENT: Head: Normocephalic. Right Ear: External ear normal. Left Ear: External ear normal. Nose: Nose normal. Eyes: General: Vision grossly intact. Conjunctiva/sclera: Conjunctivae normal. Pupils: Pupils are equal, round, and reactive to light. Neck: Vascular: No JVD. Trachea: Trachea normal. Pulmonary: Effort: Pulmonary effort is normal. No accessory muscle usage, prolonged expiration or respiratory distress. Musculoskeletal: Cervical back: Neck supple. Skin: General: Skin is warm and dry. Capillary Refill: Capillary refill takes less than 2 seconds. Neurological: General: No focal deficit present. Mental Status: She is alert and oriented to person, place, and time. Mental status is at baseline. Psychiatric: Attention and Perception: Attention and perception normal. Mood and Affect: Mood and affect normal. Speech: Speech normal. Behavior: Behavior normal. Behavior is cooperative. Thought Content: Thought content normal. Cognition and Memory: Cognition and memory normal. Judgment: Judgment normal. ASSESSMENT/PLAN: 1. Attention deficit disorder (ADD) without hyperactivity - ICD9: 314.00, ICD10: F98.8 (primary diagnosis) No signs of misuse or abuse, last fill per PDMP was 01/15, last tox screen 09/2022. Continue on current medication. PDMP website checked and validated. All prescriptions have been APPROPRIATELY filled. No suspicious activity was identified. 03/16/2023 by Stephanie Nova APRN.CNP 2. Gastroesophageal reflux disease with esophagitis - ICD9: 530.11, ICD10: K21.00 - Discussed lifestyle modifications including losing weight, limiting caffeine, no meals three hours before sleep, and head of bed elevation - FAMOTIDINE 20 MG TABLET Portions of this note have been entered by ancillary staff. I have reviewed and when necessary edited, so that they are an adequate record of my encounter with this patient Please note that parts of this document were created using voice recognition software and therefore may contain grammatical errors. Patient verbalizes understanding of instructions from today's visit and in agreement with treatment plan. Questions answered. Agrees to call the office if questions, concerns of issues with acute symptoms not improving or if they worsen. See diagnoses and orders for additional plan(s). Allergies and medications were reviewed, list was updated, and refills given if needed. Past medical, surgical, social, and family history reviewed and updated as appropriate. Encouraged proper diet & exercise as well as compliance with taking medications. Age-appropriate health preventative measures were discussed. Return if symptoms worsen or fail to improve, for Keep next scheduled appointment.. Stephanie Nova APRN-IESHA documented in this encounter [facility] 12-15-2022 Note HNO ID: [id number] Author: Yris Romero MD Service: ? Author Type: Physician Type: Progress Notes Filed: 01/12/2023 10:20 PM Note Text: This note was created using [employer]. Subjective Magui Wylie is a 47 year old female. Patient presents with: F/U 3 Month: Labs done prior SUBJECTIVE: Magui Wylie is a 47 year old year old lady here today for 3 month follow up appointment for review of medical conditions. Still healing from herniorrhaphy. Discussed on antibiotic. Noted CT scan and ovarian cyst noted as well as kidney cyst. PAST MEDICAL HISTORY Diagnosis Date Abdominal pain, other specified site Anxiety Attention deficit disorder without mention of hyperactivity Delayed emergence from general anesthesia Dysthymic disorder Depression (non-psychotic). Endometriosis Esophageal reflux Fasciitis feet Incarcerated ventral hernia 09/13/2014 Nausea with vomiting PCOS (polycystic ovarian syndrome) 02/20/2011 PMH - PAST MEDICAL HISTORY OF 1991 RHEUMATIC FEVER PONV (postoperative nausea and vomiting) Varicose vein Current Outpatient Medications Medication Sig keTORolac (TORADOL) 10 mg tablet Take 1 tablet by mouth every 6 hours as needed for pain. LIDOCAINE VISCOUS 2 % solution Take 5 mL by mouth as needed. ondansetron orally disintegrating (ZOFRAN ODT) 4 mg disintegrating tablet Take 1-2 tablets by mouth every 8 hours as needed for nausea/vomiting. spironolactone (ALDACTONE) 25 mg tablet Take 1 tablet by mouth once daily as needed (fluid retention). Methylphenidate (METADATE CD) 40 mg CD capsule Take 1 capsule by mouth once daily for 30 days. Do not start before December 09, 2022. cholecalciferol (VITAMIN D3) 400 unit tab Take 2 tablets by mouth once daily. metFORMIN ER (GLUCOPHAGE XR) 500 mg 24 hr tablet Take 2 tablets by mouth once daily. omeprazole (PRILOSEC) 40 mg capsule Take 1 capsule by mouth twice daily before meals. famotidine (PEPCID) 20 mg tablet Take 1 tablet by mouth twice daily. lidocaine (LIDODERM) 5 % Apply 1 Patch as directed every 24 hours. Remove after 12 hours. Location: wrist levonorgestrel (MIRENA) 21 mcg/24 hours (8 yrs) 52 mg IUD 1 Each by INTRAUTERINE route one time only. levoFLOXacin (LEVAQUIN) 500 mg tablet Take 1 tablet by mouth once daily for 7 days. (Patient not taking: Reported on 12/15/2022) Methylphenidate (METADATE CD) 40 mg CD capsule Take 1 capsule by mouth once daily for 30 days. Do not start before October 10, 2022. Methylphenidate (METADATE CD) 40 mg CD capsule Take 1 capsule by mouth once daily for 30 days. Do not start before November 09, 2022. Methylphenidate (METADATE CD) 40 mg CD capsule Take 1 capsule by mouth once daily for 30 days. No current facility-administered medications for this visit. Review of Systems Objective BP 144/82 Pulse 84 Temp (!) 35.6 ?C (96 ?F) Resp 18 Wt 118.4 kg (261 lb) LMP 04/11/2013 SpO2 98% BMI 36.40 kg/m? Physical Exam Component Latest Ref Rng AND Units 08/17/2014 07/03/2020 08/22/2020 08/06/2021 09/15/2022 11/20/2022 WBC 3.70 - 11.00 k/uL 12.97 (H) 13.34 (H) 14.07 (H) 16.98 (H) 12.26 (H) RBC 3.90 - 5.20 m/uL 5.19 5.19 4.86 5.33 (H) 5.19 Hemoglobin 11.5 - 15.5 g/dL 15.9 (H) 15.5 14.9 16.2 (H) 15.8 (H) Hematocrit 36.0 - 46.0 % 49.6 (H) 48.0 (H) 45.5 50.9 (H) 47.5 (H) MCV 80.0 - 100.0 fL 95.6 92.5 93.6 95.5 91.5 MCH 26.0 - 34.0 pg 30.6 29.9 30.7 30.4 30.4 MCHC 30.5 - 36.0 g/dL 32.1 32.3 32.7 31.8 33.3 RDW-CV 11.5 - 15.0 % 13.2 13.1 13.8 13.8 13.6 Platelet Count 150 - 400 k/uL 316 297 277 316 327 MPV 9.0 - 12.7 fL 9.4 9.3 9.1 9.2 9.1 Neut% % 65.2 71.5 73.7 66.6 Abs Neut (ANC) 1.45 - 7.50 k/uL 8.69 (H) 10.07 (H) 12.52 (H) 8.16 (H) Lymph% % 25.2 19.9 17.3 22.8 Abs Lymph 1.00 - 4.00 k/uL 3.36 2.80 2.94 2.80 Campbell% % 4.8 5.8 5.5 5.3 Abs Campbell <0.87 k/uL 0.64 0.81 0.94 (H) 0.65 Eosin% % 4.3 2.5 2.6 4.4 Abs Eosin <0.46 k/uL 0.58 (H) 0.35 0.44 0.54 (H) Baso% % 0.5 0.3 0.5 0.5 Abs Baso <0.11 k/uL 0.07 0.04 0.08 0.06 Immature Gran % % 0.4 0.4 IMMATURE GRANS (ABS) <0.10 k/uL 0.06 0.05 NRBC /100 WBC 0.0 0.0 Absolute nRBC <0.01 k/uL <0.01 <0.01 <0.01 <0.01 <0.01 DTYPE Auto Auto Nucleated Reds 0 /100 WBC 0.0 0.0 Diff Type Auto Diff Auto Diff Protein, Total 6.3 - 8.0 g/dL 7.5 7.4 Albumin 3.9 - 4.9 g/dL 4.7 4.5 Calcium 8.5 - 10.2 mg/dL 9.7 8.7 9.8 9.2 Bilirubin, Total 0.2 - 1.3 mg/dL 0.3 0.4 Alkaline Phosphatase 34 - 123 U/L 75 78 AST 13 - 35 U/L 23 24 Glucose 74 - 99 mg/dL 88 88 102 (H) 111 (H) BUN 7 - 21 mg/dL 7 7 8 8 Creatinine 0.58 - 0.96 mg/dL 0.70 0.71 0.74 0.77 Sodium 136 - 144 mmol/L 140 140 140 138 Potassium 3.7 - 5.1 mmol/L 4.2 4.3 4.7 4.3 Chloride 97 - 105 mmol/L 104 106 (H) 104 103 CO2 22 - 30 mmol/L 25 23 25 26 Anion Gap 9 - 18 mmol/L 11 11 11 9 ALT 7 - 38 U/L 23 23 eGFR- >60 >60 eGFR-All Other Races . >60 >60 eGFR >=60 mL/min/1.73mA? 102 97 Triglyceride 30 - 149 mg/dL 148 Cholesterol, Total 10 (more content not included)... [facility] 12-09-2022 Note Patient Outreach (IN [facility]) MAGUI WYLIE ([id number]) 1975 F Date Time Provider Department 12/09/22 YRIS ROMERO During your visit today, we recorded the following information about you: Allergies As of Date: 12/09/2022 Noted Allergy Reaction BEE STING 05/13/2010 7 - Swelling CHLORHEXIDINE GLUCONATE 08/06/2021 14 - Other: See Comments Comments: Skin felt like it was burning on fire. CODEINE 12/09/2005 Comments: heart pounds EGGS (EGG) 04/06/2018 8 - GI Upset EMYCIN (ERYTHROMYCIN) 12/02/2009 FENTANYL 09/19/2014 8 - GI Upset GRASS POLLEN 05/13/2010 12 - Shortness of Breath MORPHINE 04/10/2019 1 - Mental Status Change PENICILLINS 12/09/2005 2 - Rash SULFA (SULFONAMIDE ANTIBIOTICS) 08/28/2014 1 - Mental Status Change VICODIN (HYDROCODONE-ACETAMINOPHE*2007 12 - Shortness of Breath Comments: HEART PALPITATIONS,SWEATING,WHEEZING Date Reviewed: 11/26/2022 Reviewed by: Erin Can LPN - Fully Assessed Visit Diagnosis:Encounter for screening mammogram for breast cancer [Z12.31] Order(s):[facility] SCREENING [[id number]] Order #: [id number] FUTURE Prescriptions as of 12/14/2022 - levoFLOXacin (LEVAQUIN) 500 mg tablet Take 1 tablet by mouth once daily for 7 days. - keTORolac (TORADOL) 10 mg tablet Take 1 tablet by mouth every 6 hours as needed for pain. - LIDOCAINE VISCOUS 2 % solution Take 5 mL by mouth as needed. - ondansetron orally disintegrating (ZOFRAN ODT) 4 mg disintegrating tablet Take 1-2 tablets by mouth every 8 hours as needed for nausea/vomiting. - spironolactone (ALDACTONE) 25 mg tablet Take 1 tablet by mouth once daily as needed (fluid retention). - Methylphenidate (METADATE CD) 40 mg CD capsule Take 1 capsule by mouth once daily for 30 days. Do not start before October 10, 2022. - Methylphenidate (METADATE CD) 40 mg CD capsule Take 1 capsule by mouth once daily for 30 days. Do not start before November 09, 2022. - Methylphenidate (METADATE CD) 40 mg CD capsule Take 1 capsule by mouth once daily for 30 days. Do not start before December 09, 2022. - Methylphenidate (METADATE CD) 40 mg CD capsule Take 1 capsule by mouth once daily for 30 days. - cholecalciferol (VITAMIN D3) 400 unit tab Take 2 tablets by mouth once daily. - metFORMIN ER (GLUCOPHAGE XR) 500 mg 24 hr tablet Take 2 tablets by mouth once daily. - omeprazole (PRILOSEC) 40 mg capsule Take 1 capsule by mouth twice daily before meals. - famotidine (PEPCID) 20 mg tablet Take 1 tablet by mouth twice daily. - lidocaine (LIDODERM) 5 % Apply 1 Patch as directed every 24 hours. Remove after 12 hours. Location: wrist - levonorgestrel (MIRENA) 21 mcg/24 hours (8 yrs) 52 mg IUD 1 Each by INTRAUTERINE route one time only. Problem List As Of Date 12/09/2022 Noted Resolved Gastroesophageal reflux disease without esophag*12/05/2009 Routine gynecological examination [Z01.419] 05/13/2010 Class: Chronic Class 2 obesity due to excess calories without *05/13/2010 Anxiety disorder [F41.9] 05/13/2010 ADD (attention deficit disorder) [F98.8] 12/24/2010 PCOS (polycystic ovarian syndrome) [E28.2] 02/20/2011 Perimenopausal menorrhagia [N92.4] 06/01/2013 Leukocytosis [D72.829] 08/06/2021 Current smoker [F17.200] 08/06/2021 Varicose veins of left lower extremity with william*08/06/2021 Umbilical hernia without obstruction and withou*10/28/2022 10/28/2022 Encounter Status:Closed by KYRA KOCHR on 12/14/22 [facility] 12-09-2022 Miscellaneous Notes Spoke with Magui. Reviewed Marcelle's message with her. She voiced understanding. Zayda Fletcher RN New Rx sent to [facility] in [place] as requested. Please let her know not to take her Zofran while on the antibiotic, as it is showing possible interaction Spoke with Magui. Dr. Cid send the prescription for her Levaquin to [facility], but they live in [place] and use [facility]. Could a prescription be called to [facility] instead? Zayda Fletcher RN I called in some antibiotics. Levaquin 500 mg once a day. It was sent to the [place] pharmacy Pt. calling in stating the incision from her umbilical hernia repair is oozing and coming open. Pt reports seeing a stitch come out of the surgical site today. States the opening is approximately the width of her pinky nail. Pt. had surgery on 10/28/22. Pt. reports redness/ warmth at incision site with small/ moderate amount of thick green/ yellow discharge. Notes an odor associated with the drainage. Please advise if you would like pt to be seen in office for appt. Thank you. Harika Chan RN documented in this encounter [facility] 11-26-2022 Note HNO ID: [id number] Author: Dano Cid MD Service: ? Author Type: Physician Type: Progress Notes Filed: 11/26/2022 1:38 PM Note Text: Subjective: Patient is status post a umbilical hernia repair with mesh on 10/28/2022 in [place]. She been complaining of her incision was not closing appropriately CAT scan was obtained which really only showed postoperative changes she was started on some doxycycline and has been cleaning it and has gradually noticed that the incision is starting to close now. Objective:Blood pressure 150/90, pulse 117, temperature 36.6 ?C (97.9 ?F), height 180.3 cm (5' 11 ), weight 119.7 kg (264 lb), last menstrual period 04/11/2013, SpO2 98 %. Incisions look clean there is no signs of pus coming from the incision there is no real overt tenderness in the area there is no cellulitis just normal postoperative changes. Assessment: Aftercare Plan: Order to continue to do the local wound care when she is done with her antibiotics I think will be fine I do not think she will need anymore. I want her to gradually increase her activities. Probably touch base with Marcelle Espinosa in 1 month. [facility] 11-20-2022 Note HNO ID: [id number] Author: RT Vicki(R) Service: ? Author Type: Lube Technician Type: Progress Notes Filed: 11/20/2022 2:01 PM Note Text: Radiology Service Progress Note DATE OF SERVICE: November 20, 2022 TIME: 2:00 PM PATIENT IDENTITY VERIFICATION COMPLETED USING TWO (2) STANDARD IDENTIFIERS: Name and Date of confirmed by patient verbally. FALL SCREENING: Has the patient had 2 falls in the last year or 1 fall with injury or currently using an Ambulatory Assistive Device (Walker, Cane, Wheelchair, Crutches, etc.)? No PATIENT GENDER DATA: Female. status: : No status: NO. PATIENT RELEVANT IMPLANT DATA REVIEWED: Yes ALLERGIES: Reviewed and unchanged CONTRAST ALLERGY: NO. EXAM: CT -CONTRAST INDUCED NEPHROPATHY RISK FACTORS: Not applicable CREATININE: Creatinine Date Value Ref Range Status 11/20/2022 0.77 0.58 - 0.96 mg/dL Final 09/15/2022 0.74 0.58 - 0.96 mg/dL Final 08/06/2021 0.71 0.58 - 0.96 mg/dL Final Estimated Glomerular Filtration Rate Date Value Ref Range Status 11/20/2022 97 >=60 mL/min/1.73m? Final Comment: Estimated Glomerular Filtration Rate (eGFR) is calculated using the 2020 CKD-EPI creatinine equation. This equation utilizes serum creatinine, sex, and age as parameters. The creatinine assay has traceable calibration to isotope dilution-mass spectrometry. Refer to KDIGO guidelines for clinical interpretation. In patients with unstable renal function, e.g. those with acute kidney injury, the eGFR may not accurately reflect actual GFR. eGFR- Date Value Ref Range Status 08/06/2021 >60 Final P.O.C.T. RESULTS: POC done: Yes, See Lab Tab November 20, 2022 TREATMENT: N/A PERIPHERAL IV DATA: Ambulatory: A peripheral IV was started in the Left with a Angio cath: 22 gauge. RADIOLOGY DEPARTMENT: CT; Exam(s) Completed: Abdomen/Pelvis SIGNATURE: RT Haseeb(R) PATIENT NAME: Magui Wylie DATE: November 20, 2022 TIME: 2:00 PM [facility] 11-20-2022 Note HNO ID: [id number] Author: Marcelle Cooley PA-C Service: ? Author Type: Physician Boat Builder Type: Progress Notes Filed: 11/30/2022 7:05 AM Note Text: FOLLOW UP VISIT - HERNIA NAME: Magui Wylie [facility] NO.: [id number] DATE OF SERVICE: 11/20/2022 : 1975 REFERRING PHYSICIAN: Yris Romero MD Magui is a patient I am following with Dr. Cid for a umbilical hernia. Dr. Cid performed an umbilical hernia repair with mesh on 10/28/22. Patient had done well initially since surgery, but now notes she is having significant pain all over and surrounding her operative site, and notes incision is red and oozing. She is very concerned about possible infection, noting I always have issues after surgery. Denies fever or chills. VITALS: Blood pressure 130/86, pulse 111, temperature 36.8 ?C (98.3 ?F), last menstrual period 04/11/2013, SpO2 98 %. General: patient is alert, cooperative, pleasant and in no acute distress On examination, there are no signs of recurrent hernia formation. +incision with mild surrounding erythema and yellow drainage. No streaking or cellulitis. +diffuse tenderness to palpation without rebound or guarding Assessment IMPRESSION: status post umbilical hernia repair with mesh, incisional infection PLAN: -Labs and CT scan today to r/o deeper infection or fluid collection -Begin antibiotic -Follow up with Dr. Cid next week when he returns to office Diagnoses: (G89.18) Post-op pain (primary encounter diagnosis) (T81.49XA) Incisional infection (Z98.890, Z87.19) S/P hernia repair (R10.9) Abdominal cramping (K65.9) Infection in abdomen (HCC) Patient verbalized understanding of all above and agreed with the plan. Marcelle Cooley PA-C [facility] 11-20-2022 History of Presen t illness Narrative Radiology Service Progress Note DATE OF SERVICE: November 20, 2022 TIME: 2:00 PM PATIENT IDENTITY VERIFICATION COMPLETED USING TWO (2) STANDARD IDENTIFIERS: Name and Date of confirmed by patient verbally. FALL SCREENING: Has the patient had 2 falls in the last year or 1 fall with injury or currently using an Ambulatory Assistive Device (Walker, Cane, Wheelchair, Crutches, etc.)? No PATIENT GENDER DATA: Female. status: : No status: NO. PATIENT RELEVANT IMPLANT DATA REVIEWED: Yes ALLERGIES: Reviewed and unchanged CONTRAST ALLERGY: NO. EXAM: CT -CONTRAST INDUCED NEPHROPATHY RISK FACTORS: Not applicable CREATININE: Creatinine Date Value Ref Range Status 11/20/2022 0.77 0.58 - 0.96 mg/dL Final 09/15/2022 0.74 0.58 - 0.96 mg/dL Final 08/06/2021 0.71 0.58 - 0.96 mg/dL Final Estimated Glomerular Filtration Rate Date Value Ref Range Status 11/20/2022 97 >=60 mL/min/1.73m Final Comment: Estimated Glomerular Filtration Rate (eGFR) is calculated using the 2020 CKD-EPI creatinine equation. This equation utilizes serum creatinine, sex, and age as parameters. The creatinine assay has traceable calibration to isotope dilution-mass spectrometry. Refer to KDIGO guidelines for clinical interpretation. In patients with unstable renal function, e.g. those with acute kidney injury, the eGFR may not accurately reflect actual GFR. eGFR- Date Value Ref Range Status 08/06/2021 >60 Final P.O.C.T. RESULTS: POC done: Yes, See Lab Tab November 20, 2022 TREATMENT: N/A PERIPHERAL IV DATA: Ambulatory: A peripheral IV was started in the Left with a Angio cath: 22 gauge. RADIOLOGY DEPARTMENT: CT; Exam(s) Completed: Abdomen/Pelvis SIGNATURE: RT Haseeb(R) PATIENT NAME: Magui Wylie DATE: November 20, 2022 TIME: 2:00 PM documented in this encounter [facility] 11-19-2022 Miscellaneous Notes Pt is scheduled with Marcelle Cooley. Pt is upset she can't see Dr. Cid. States a similar situation has happened in a previous surgery where she did not recover well. Schedule the Pt for a follow up with PA. Stas At soonest appointment that works for the Pt. Estrella Moran RN Pt calling as she had procedure with Dr. Cid and now believes that her incision is infected. There is nothing available until the week on November 30. Pt needs seen GIANNA documented in this encounter [facility] 11-03-2022 Note HNO ID: [id number] Author: Marcelle Cooley PA-C Service: ? Author Type: Physician Boat Builder Type: Progress Notes Filed: 11/12/2022 3:39 PM Note Text: FOLLOW UP VISIT - HERNIA NAME: Magui Wylie CLINIC NO.: [id number] DATE OF SERVICE: 11/03/2022 : 1975 REFERRING PHYSICIAN: Yris Romero MD Magui is a patient I am following with Dr. Cid for anumbilical hernia. Dr. Cid performed an umbilical hernia repair with mesh on 10/28/22. The patient currently notes no major complaints. her appetite has been good. she denies fever, chills or abdominal pain. she does note some moderate incisional discomfort. she notes no bulges at the operative site VITALS: Blood pressure 140/85, pulse 106, temperature 36.4 ?C (97.5 ?F), height 180.3 cm (5' 11 ), weight 113.4 kg (250 lb), last menstrual period 04/11/2013, SpO2 98 %. General: patient is alert, cooperative, pleasant and in no acute distress On examination, the abdomen is benign. The incision is healing well without signs of infection or inflammation. There are no signs of recurrent hernia formation. Assessment IMPRESSION: status post umbilical hernia repair with mesh PLAN: If the patient notes any problems, she should contact me immediately. she may return to her regular activities as tolerated, with the exception of no lifting greater than 20 pounds for the next 7 weeks. If patient feels the urge to cough or sneeze, they should brace against the repair site with their hands or a pillow. Patient using ice and ibuprofen alternated with the narcotic pain medication, states pain still up to 8/10 in severity at times PDMP website checked and validated. All prescriptions have been APPROPRIATELY filled. No suspicious activity was identified. 11/03/2022 by Marcelle Cooley PA-C . 5 tablets of Percocet prescribed. Patient advised that no further refills will be given Diagnoses: (G89.18) Post-op pain (primary encounter diagnosis) (Z98.890, Z87.19) S/P hernia repair Return to Clinic: The patient is instructed to follow-up with me as needed. Patient verbalized understanding of all above and agreed with the plan. Marcelle Cooley PA-C [facility] 11-03-2022 Instructions Marcelle Cooley PA-C - 11/03/2022 9:43 AM EDT The following instructions are important for you related to your office visit today with the [facility] General Surgeons. INSTRUCTIONS FOLLOWING YOUR RECENT HERNIA SURGERY You should be returning to your regular diet, If you have having persistent issues with tolerating your diet, please contact our office It is not unusual to have incisional pain for the first 1-2 weeks following surgery. If this persists beyond 2 weeks, contact the office You should leave the Steri-Strips in place until they fall off. You may return to your regular activities. You may drive if you are no longer taking narcotic pain medication. Climbing stairs is fine. Walking in encouraged. Sitting up from bed may be uncomfortable. Sitting up using your lateral abdominal muscles (sitting up sideways) is usually more comfortable. You should perform no lifting greater than 20lbs for the next 6-7 weeks. Usually 8 weeks total from the date of surgery. It is not unusual to have loose stools following surgery. This is usually self limited and related to the antibiotics that were given during your surgical procedure. Fiber supplementation and yogurt with active cultures may help you return to regular bowel activity. If you note loose stools persisting for over 2 weeks, or significant cramping or loose bloody stools, contact the office immediately. Contact the office immediately if any of your incisions become increasingly tender, red or have drainage. Again, if you have any difficulties or concerns, contact our office immediately. If you note any additional difficulties, questions, or concerns, you should contact our office immediately @ [phone] and ask to be transferred to the General Surgery department. documented in this encounter [facility] 11-03-2022 History of Presen t illness Narrative FOLLOW UP VISIT - HERNIA NAME: Magui Grossman [facility] NO.: [id number] DATE OF SERVICE: 11/03/2022 : 1975 REFERRING PHYSICIAN: MD Magui Ron is a patient I am following with Dr. Cid for anumbilical hernia. Dr. Cid performed an umbilical hernia repair with mesh on 10/28/22. The patient currently notes no major complaints. her appetite has been good. she denies fever, chills or abdominal pain. she does note some moderate incisional discomfort. she notes no bulges at the operative site VITALS: Blood pressure 140/85, pulse 106, temperature 36.4 C (97.5 F), height 180.3 cm (5' 11 ), weight 113.4 kg (250 lb), last menstrual period 04/11/2013, SpO2 98 %. General: patient is alert, cooperative, pleasant and in no acute distress On examination, the abdomen is benign. The incision is healing well without signs of infection or inflammation. There are no signs of recurrent hernia formation. Assessment IMPRESSION: status post umbilical hernia repair with mesh PLAN: If the patient notes any problems, she should contact me immediately. she may return to her regular activities as tolerated, with the exception of no lifting greater than 20 pounds for the next 7 weeks. If patient feels the urge to cough or sneeze, they should brace against the repair site with their hands or a pillow. Patient using ice and ibuprofen alternated with the narcotic pain medication, states pain still up to 8/10 in severity at times PDMP website checked and validated. All prescriptions have been APPROPRIATELY filled. No suspicious activity was identified. 11/03/2022 by Marcelle Cooley PA-C . 5 tablets of Percocet prescribed. Patient advised that no further refills will be given Diagnoses: (G89.18) Post-op pain (primary encounter diagnosis) (Z98.890, Z87.19) S/P hernia repair Return to Clinic: The patient is instructed to follow-up with me as needed. Patient verbalized understanding of all above and agreed with the plan. Marcelle Cooley PA-C documented in this encounter [facility] documented as of this encounter (statuses as of 11/12/2022) [facility]2023 History of Past illness Narrative* Problem Noted Date Resolved Date Umbilical hernia without obstruction and without gangrene 10/28/2022 10/28/2022 documented as of this encounter (statuses as of 11/13/2022) [facility] History of Past illness Narrative* Problem Noted Date Resolved Date Umbilical hernia without obstruction and without gangrene 10/28/2022 10/28/2022 documented as of this encounter (statuses as of 11/19/2022) [address]19-2023 History of Past illness Narrative* Problem Noted Date Resolved Date Umbilical hernia without obstruction and without gangrene 10/28/2022 10/28/2022 documented as of this encounter (statuses as of 12/09/2022) [facility] History of Past illness Narrative* Problem Noted Date Resolved Date Umbilical hernia without obstruction and without gangrene 10/28/2022 10/28/2022 documented as of this encounter (statuses as of 12/14/2022) [facility] History of Past illness Narrative* Problem Noted Date Diagnosed Date Resolved Date Umbilical hernia without obs truction and without gangrene 10/28/2022 10/28/2022 documented as of this encounter (statuses as of 03/16/2023) [facility] History of Past illness Narrative* Problem Noted Date Diagnosed Date Resolved Date Umbilical hernia without obs truction and without gangrene 10/28/2022 10/28/2022 documented as of this encounter (statuses as of 03/25/2023) [facility] History of Past illness Narrative* Problem Noted Date Diagnosed Date Resolved Date Umbilical hernia without obs truction and without gangrene 10/28/2022 10/28/2022 documented as of this encounter (statuses as of 04/20/2023) [address]-2023 History of Past illness Narrative* Problem Noted Date Diagnosed Date Resolved Date Umbilical hernia without obs truction and without gangrene 10/28/2022 10/28/2022 documented as of this encounter (statuses as of 05/16/2023) [facility] History of Past illness Narrative* Problem Noted Date Diagnosed Date Resolved Date Umbilical hernia without obs truction and without gangrene 10/28/2022 10/28/2022 documented as of this encounter (statuses as of 06/21/2023) [facility] History of Past illness Narrative* Problem Noted Date Diagnosed Date Resolved Date Umbilical hernia without obs truction and without gangrene 10/28/2022 10/28/2022 documented as of this encounter (statuses as of 08/24/2023) [facility]-13-2023 Instructions* Patient Instructions* Destin Brady APRN.REGISTERED ASSOCIATE - 10/22/2022 12:54 PM EDT PATIENT PREOPERATIVE INSTRUCTIONS Dano Cid MD has scheduled you for your procedure at this surgery center: [facility]: [phone] -- [address] [address]. Please read below carefully for your personalized instructions. Dietary Restrictions: - No solid food after midnight. - You may have 12 ounces of clear liquids (water, clear juices such as apple juice or gatorade, carbonated beverages, clear tea, black coffee, jello) until 2 hours before scheduled arrival at facility. Preoperative Instructions for Patient's with Diabetes Mellitus Diabetic Medication Instructions:Please take the following meds at your usual dose the day before surgery. DO NOT TAKE THE MORNING OF SURGERY; Byetta, Bydureon, Trajenta, Symlin, Victoza, Trulicity, Metformin, Actos/Pioglitazone and Amaryl/Glimepiride Medications: Unless instructed differently below, stay on all of your medications until your surgery. Approved medications to take the morning of surgery with a sip of water: Omeprazole (Prilosec), Famotidine (Pepcid). - Your pain medication may cause thinning of your blood. Please see directions for Blood Thinning Medications. If you start any new medications after today's visit, please contact the surgeon's office. Blood Thinning Medications: - Stop NSAIDS (Ibuprofen, Advil, Aleve, Motrin, Celebrex, Mobic, etc.) 7 days before surgery, as directed by your surgeon. - Stop Aspirin 7 days before surgery, as directed by your surgeon. - Stop Vitamin E, ALL multi-vitamins, herbals and dietary supplements 7 days before surgery. - You may take Tylenol (Acetaminophen) or any of your pain medications that do not contain aspirin or NSAIDS as needed. Important Reminders: - Candy, mints, and tobacco products are NOT permitted the morning of surgery. - Hearing aids, dentures and glasses may be worn the morning of surgery. - NO jewelry, body piercings, makeup, hairpins or contacts are to be worn the day of surgery. If you develop symptoms such as a fever, cold, or flu, or have other changes to your health within TWO DAYS of scheduled surgery or the morning of surgery, please contact the surgery center above. Personal Belongings: -Please have photo ID and insurance cards. -If you do not have a copy of advance directives on file with us, please bring a copy with you on the day of surgery. - Leave ALL valuables and money at home or with family members. For Outpatient Procedures: - YOU MUST HAVE A RESPONSIBLE MACHINE LAY OUT WORKER TAKE YOU HOME. A SURFACE SUPERVISOR OR INCUBATOR MACHINE OPERATOR CANNOT BE MADE A RESPONSIBLE MACHINE LAY OUT WORKER. - We recommend that a responsible person stays with you overnight to take care of you. - You cannot stay in a hotel alone after outpatient surgery. You will not be permitted to have yoursurgery, if you do not have someone to take care of you. Arrival Time for Surgery: - The Surgery Center or hospital where you are having surgery will call the afternoon before surgery (or Wednesday for Wednesday surgery) with a scheduled arrival time. - If you have not heard by 4 pm, please contact the surgery center above. Please be aware that emergency situations arise, which may delay or change your surgical time. If this happens, we will notify you as soon as possible and regret any inconvenience. If you already have an Advance Directive, please fax a copy to [phone] or email to for it to be added to your chart. If you do not have an Advance Directive, you can find the appropriate form and more information at [email or web address]. We recommend that youcomplete the Advance Directive form found on the website and bring it with you the day of your surgery. It can be witnessed and scanned into your chart that day. Destin Brady APRN.CNP [facility] History and physical note * Destin Brady, KYA.REGISTERED ASSOCIATE - 10/22/2022 12:30 PM EDT PREANESTHESIA CONSULT CLINIC TELEHEALTH VISIT Patient has been identified by name and date of : Yes This is a virtual visit using [employer] video visit. It require patient-provider interaction for the medical decision making as documented below. Reason for contact: PACC visit Accompanied by: Self Scheduled Surgery: LAPAROSCOPIC REPAIR HERNIA FOR REDUCIBLE UMBILICAL W/ MESH 3cm-10cm on 3at Marai Elena. Subjective CHIEF COMPLAINT: Patient presents with: Pre-Op Visit HPI: This is a 47 year old female who presents for a virtual PACC visit; she is scheduled for a laparoscopic repair hernia for reducible umbilical with mesh. Patient has c/o umbilical hernia without obstruction or gangrene. Symptoms started 5-6 years ago. She has associated pain/discomfort. Patientdenies recent fevers, chills, unexplained weight loss, nausea, vomiting, changes in bowel habits, or blood in the stool. The above surgery was recommended; patient has elected to proceed. ACTIVE PROBLEM LIST Gastroesophageal Reflux Disease Without Esophagitis Routine Gynecological Examination Class 2 Obesity Due to Excess Calories Without Serious Comorbidity With Body Mass Index (Bmi) of 39.0 to 39.9 in Adult Anxiety Disorder Add (Attention Deficit Disorder) Pcos (Polycystic Ovarian Syndrome) Perimenopausal Menorrhagia Leukocytosis Current Smoker Varicose Veins of Left Lower Extremity With Pain PAST MEDICAL HISTORY Diagnosis Date Abdominal pain, other specified site Anxiety Attention deficit disorder without mention of hyperactivity Delayed emergence from general anesthesia Dysthymic disorder Depression (non-psychotic). Endometriosis Esophageal reflux Fasciitis feet Incarcerated ventral hernia 09/13/2014 Nausea with vomiting PCOS (polycystic ovarian syndrome) 02/20/2011 [facility] - PAST MEDICAL HISTORY OF 1992 RHEUMATIC FEVER PONV (postoperative nausea and vomiting) Varicose vein PAST SURGICAL HISTORY Procedure Laterality Date APPENDECTOMY DELIVERY ONLY 2007,2004,2010 EGD TRANSORAL BIOPSY SINGLE/MULTIPLE 12/05/2009 HH,reflux ESOPHAGOGASTRODUODENOSCOPY TRANSORAL DIAGNOSTIC 10/03/2014 EGD HERNIA REPAIR W/MESH 09-13-14 IMPLANT MESH OPN HERNIA RPR/DEBRIDEMENT CLOSURE 09/13/14 PAST SURGICAL HISTORY OF LAPARATOMY AND CYSTECTOMY PAST SURGICAL HISTORY OF carpectomy right wrist PAST SURGICAL HISTORY OF 11/20/2016 foot surgery right RPR 1ST INCAL/VNT HERNIA INCARCERATED 09/13/14 TONSILLECTOMY & ADENOIDECTOMY <AGE 14 FAMILY HISTORY Problem Relation Age of Onset Hypertension Father Cancer Maternal Aunt CERVICAL Cancer Maternal Aunt CERVICAL Ischemic Heart Disease Maternal Uncle RI Ischemic Heart Disease Maternal Uncle RI Thyroid Paternal Aunt Cancer Cancer Maternal Grandmother CERVICAL CANCER Stroke Maternal Grandmother HTN Hypertension Maternal Grandmother Stroke Maternal Grandfather HTN, DM Hypertension Maternal Grandfather Hypertension Paternal Grandmother Thyroid Paternal Grandmother Cancer Hypertension Paternal Grandfather Malig Hyperthermia No Family History Social History Tobacco Use Smoking status: Some Days Years: 13.00 Types: Cigarettes Smokeless tobacco: Never Tobacco comments: 3-4 days per week Vaping Use Vaping Use: Never used Substance Use Topics Alcohol use: Yes Alcohol/week: 10.0 standard drinks Types: 10 Cans of Beer (12oz) per week Comment: 2-3 times per week Drug use: No ALLERGIES Allergen Reactions Bee Sting Swelling Chlorhexidine Gluco* Other: See Comments Skin felt like it was burning on fire. Codeine heart pounds Eggs [Egg] GI Upset Emycin [Erythromyci* Fentanyl GI Upset Grass Pollen Shortness of Breath Morphine Mental Status Change Penicillins Rash Sulfa (Sulfonamide * Mental Status Change Vicodin [Hydrocodon* Shortness of Breath HEART PALPITATIONS,SWEATING,WHEEZING MEDICATIONS: Current Outpatient Medications Medication Sig spironolactone (ALDACTONE) 25 mg tablet Take 1 tablet by mouth once daily as needed (fluid retention). [START ON 11/09/2022] Methylphenidate (METADATE CD) 40 mg CD capsule Take 1 capsule by mouth once daily for 30 days. Do not start before November 09, 2022. cholecalciferol (VITAMIN D3) 400 unit tab Take 2 tablets by mouth once daily. metFORMIN ER (GLUCOPHAGE XR) 500 mg 24 hr tablet Take 2 tablets by mouth once daily. omeprazole (PRILOSEC) 40 mg capsule Take 1 capsule by mouth twice daily before meals. famotidine (PEPCID) 20 mg tablet Take 1 tablet by mouth twice daily. levonorgestrel (MIRENA) 21 mcg/24 hours (8 yrs) 52 mg IUD 1 Each by INTRAUTERINE route one time only. LIDOCAINE VISCOUS 2 % solution Take 5 mL by mouth as needed. ondansetron orally disintegrating (ZOFRAN ODT) 4 mg disintegrating tablet Take 1-2 tablets by mouthevery 8 hours as needed for nausea/vomiting. Methylphenidate (METADATE CD) 40 mg CD capsule Take 1 capsule by mouth once daily for 30 days. Do not start before October 10, 2022. [START ON 12/09/2022] Methylphenidate (METADATE CD) 40 mg CD capsule Take 1 capsule by mouth once daily for 30 days. Do not start before December 09, 2022. Methylphenidate (METADATE CD) 40 mg CD capsule Take 1 capsule by mouth once daily for 30 days. lidocaine (LIDODERM) 5 % Apply 1 Patch as directed every 24 hours. Remove after 12 hours. Location:wrist IBUPROFEN (MOTRIN ORAL) Take by mouth. No current facility-administered medications for this visit. COVID VACCINATION STATUS: Fully vaccinated REVIEW OF SYSTEMS: Pain Assessment: General: No weight loss, malaise or fevers. Neuro: Negative for seizures, strokes. Respiratory: Current smoker. No history of current cough or dyspnea, or pneumonia in the past 6 weeks. No history of respiratory/pulmonary symptoms or problems. Cardiovascular: No history of HTN requiring medication, no history of angina, CHF, RI, cardiac surgery or stents. Denies rest pain, gangrene or revascularization/amputation for PVD. No history of cardiovascular symptoms or problems. Denies current chest pain, palpitations, fluttering. GI: + GERD. Negative for Nausea, Vomiting, Abdominal pain, Liver disease : No history of dysuria, frequency or incontinence,, stones or chronic kidney disease PORCELAIN TURNER: Negative for abnormal vaginal bleeding, abnormal vaginal discharge. : Denies, Patient's last menstrual period was 04/11/2013. Endocrine: + PCOS. No history of diabetes. Has not taken steroids within the past 30 days. No history of endocrinological symptoms or problems. Hematology: No history of bleeding or clotting disorder. Pt is not taking anti- coagulation or platelet medications. No history of hematological symptoms or problems. Oncology: No history of CA metastasis, chemo within 30 days, or radiotherapy within 90 days. Has not lost 10% of body wt in 6 months. No history of oncological symptoms or problems. Psych: + ADD Musculoskeletal: + Fibromyalgia. Skin: Negative for lesions, rash and itching. Objective PHYSICAL EXAM: Ht 5' 11 (1.80m) Wt 250 lb (113.4kg) LMP 04/11/2013 BMI 34.88 kg/(m^2). VIDEO EXAM: (if completed, performed via video enabled technology) GENERAL: alert and appropriate, in no distress, well-hydrated, well nourished, and happy, smiling, interactive SKIN: no rash noted HEAD: normocephalic, no abnormality or lesion noted RESPIRATORY: breathing non-labored CHEST: equal chest rise with normal respiratory effort HEART: Self palpated radial pulse, regular when counted aloud by patient Diagnostic tests reviewed for today's visit: Lab Value Units Date High Low HB 16.2 g/dL 09/15/2022 15.5 11.5 HCT 50.9 % 09/15/2022 46.0 36.0 WBC 16.98 k/uL 09/15/2022 11.00 3.70 PLT 316 k/uL 09/15/2022 400 150 NA 140 mmol/L 09/15/2022 144 136 K 4.7 mmol/L 09/15/2022 5.1 3.7 GLUC 102 mg/dL 09/15/2022 99 74 BUN 8 mg/dL 09/15/2022 21 7 CREAT 0.74 mg/dL 09/15/2022 0.96 0.58 PTSEC No results within date range. INR No results within date range. APTT No results within date range. ALT 23 U/L 09/15/2022 38 7 AST 24 U/L 09/15/2022 35 13 TBILI 0.4 mg/dL 09/15/2022 1.3 0.2 TSH No results within date range. Lab Value Units Date High Low HCGQT No results within date range. UHCG No results within date range. HCG, BODY* No results within date range. Lab Value Units Date High Low ABORHD No results within date range. ABSCREEN No results within date range. HBA1C, Daily (%) Date Value 05/13/2010 5.6 Impression/Recommendations ASSESSMENT: Current smoker Patient smokes intermittently, 3-4 x per week. Gastroesophageal reflux disease without esophagitis Stable on Omeprazole 40 mg and Famotidine 20 mg twice daily. Leukocytosis Known leukocytosis, CBC 09/15/22 showed - WBC 16.98. Patient denies symptoms on infection - no recent fevers, cough, URI symptoms dysuria. PCOS (polycystic ovarian syndrome) Patient takes Metformin daily for PCOS, denies hx of Diabetes. ADD (attention deficit disorder) Stable on Methylphenidate daily. Advised patient to avoid DOS, she verbalized understanding. METS: Climb a flight of stairs or walk up a hill (5.50 METs) Patient denies any chest pain or undue shortness of breath with the above physical activity. ASA Class: 3 ANESTHESIA FINDINGS: Intubation History: No history of difficult intubation Significant Anesthesia Considerations: Post-op nausea/vomiting (patient responded well to the scopolamine patch in the past). Slow emergence. Patient states she is very allergic to chlorhexidine and codeine. Patient denies life- threatening reactions to anesthesia. Airway Exam: General: Normal appearance Mallampati Score is CLASS II ULBT: Class I - Lower incisors can bite the upper lip above the max line Neck: Normal appearance and function, Distance from hyoid to mentum during neck extension is at least 3 finger breaths Mouth: Normal tongue size and Mouth opening greater than 2 finger breaths Dentition: Missing teeth. Airway History: No abnormal airway history STOP BANG Score: Criteria: Snoring Score = 1 PLAN: This patient is optimally prepared for surgery. CONSULTS: Patient does not require consults for optimization at this time. The Following Tests/Procedures Have Been Initiated: Labs not indicated per [facility] protocol, EKG not indicated per [facility] protocol Planned Anesthetic: Per anesthesia choice Instructions Given to Patient: Patient given verbal instructions and voices comprehension and compliance. Copy sent electronically via My Chart, email, or mobile device. I spent more than 0-20 minutes [id number] with the patient and over half the time was devoted to counseling and/or coordination of care. This is a virtual visit. It required patient-provider interaction for the medical decision making as documented above. SIGNATURE: Destin Brady APRN.CNP PATIENT NAME: Magui Wylie DATE: 10/22/22 TIME: 12:34 PM PAGER/CONTACT #: This is a virtual visit using [employer] video visit. It required patient-provider interaction for themedical decision making as documented below. I have communicated my name and active licensure. The patient's identity and physical location wereverified at the time of this visit. Either the patient or their legal support representative has been informed of the risks and benefits of and alternatives to treatment through a remote evaluation and consents to proceed with the evaluation remotely. [facility] Miscellaneous Notes* Telephone Encounter - Gena Bailey - 10/13/2022 10:54 AM EDT Contacted patient and made aware of message below. Patient given [facility] number and denied to be transferred at time of call. Per patient stated she will call and definitely schedule an appointment prior to procedure on [address] Cid in [place] * Telephone Encounter - Carolann Braxton LPN - 10/13/2022 10:08 AM EDT Preanesthesia called stating they have tried to contact patient multiple time via phone and throughmychart. Patient has not responded. Please advise and contact preanesthesia at [phone]. Carolann Braxton LPN * Telephone Encounter - Gena Bailey - 09/21/2022 2:52 PM EDT Called patient in regards to below message. Patient stated phone has been messed up and she has not heard anyone on the other line. Patient asking for [facility] and she will give them a call this week. Gena Bailey [employer] * Telephone Encounter - Roxy Lake LPN - 09/21/2022 2:21 PM EDT [facility] nurse called stating, tried reaching out to patient to step up appointment. Patient answered phone saying What & hung up phone. [facility] said to contact patient, notify her to get in touch with them at [phone] to schedule pre-anesthesia appointment. Roxy Lake LPN * Telephone Encounter - Gena Bailey - 09/18/2022 11:00 AM EST 10/28/2022 UMBILICAL HERNIA REPAIR W/ MESH MAZARIEGOS documented in this encounterPar[facility]03-17-2023 NoteHNO ID: [id number] Author: Dano Cid MD Service: ? Author Type: Physician Type: Progress Notes Filed: 09/25/2022 2:47 PM Note Text: HISTORY AND PHYSICAL Magui Wylie 1975 REFERRING PHYSICIAN: Yris Romero MD CHIEF COMPLAINT: Consult (Umbilical hernia) HPI: Magui is a 47 year old female with a complaint of a bulge and discomfort in her umbilical region. The patient notes discomfort in this area with straining. The symptoms have increased, over the past few months. The patient notes no symptoms of bowel obstruction and denies nausea or vomiting. The patient was seen by her primary care physician who felt the patient has a hernia. Magui was referred for evaluation and treatment. The patient is being seen by me today at the request of Dr. Yris Romero MD for my opinion and advice regarding Umbilical hernia without obstruction and without gangrene Abdominal pannus . PAST MEDICAL HISTORY Diagnosis Date Abdominal pain, other specified site Anxiety Attention deficit disorder without mention of hyperactivity Dysthymic disorder Depression (non-psychotic). Endometriosis Esophageal reflux Fasciitis feet Incarcerated ventral hernia 09/13/14 Nausea with vomiting PCOS (polycystic ovarian syndrome) 02/20/2011 [facility] - PAST MEDICAL HISTORY OF 1992 RHEUMATIC FEVER Varicose vein PAST SURGICAL HISTORY Procedure Laterality Date APPENDECTOMY DELIVERY ONLY 2007,2004,2010 EGD TRANSORAL BIOPSY SINGLE/MULTIPLE 12/05/2009 HH,reflux ESOPHAGOGASTRODUODENOSCOPY TRANSORAL DIAGNOSTIC 10/03/2014 EGD HERNIA REPAIR W/MESH 09-13-14 IMPLANT MESH OPN HERNIA RPR/DEBRIDEMENT CLOSURE 09/13/14 PAST SURGICAL HISTORY OF LAPARATOMY AND CYSTECTOMY PAST SURGICAL HISTORY OF carpectomy right wrist PAST SURGICAL HISTORY OF 11/20/2016 foot surgery right RPR 1ST INCAL/VNT HERNIA INCARCERATED 09/13/14 TONSILLECTOMY AND ADENOIDECTOMY Current Outpatient Medications Medication Sig LIDOCAINE VISCOUS 2 % solution Take 5 mL by mouth as needed. ondansetron orally disintegrating (ZOFRAN ODT) 4 mg disintegrating tablet Take 1-2 tablets by mouth every 8 hours as needed for nausea/vomiting. spironolactone (ALDACTONE) 25 mg tablet Take 1 tablet by mouth once daily as needed (fluid retention). [START ON 10/10/2022] Methylphenidate (METADATE CD) 40 mg CD capsule Take 1 capsule by mouth once daily for 30 days. Do not start before October 10, 2022. [START ON 11/09/2022] Methylphenidate (METADATE CD) 40 mg CD capsule Take 1 capsule by mouth once daily for 30 days. Do not start before November 09, 2022. [START ON 12/09/2022] Methylphenidate (METADATE CD) 40 mg CD capsule Take 1 capsule by mouth once daily for 30 days. Do not start before December 09, 2022. Methylphenidate (METADATE CD) 40 mg CD capsule Take 1 capsule by mouth once daily for 30 days. cholecalciferol (VITAMIN D3) 400 unit tab Take 2 tablets by mouth once daily. metFORMIN ER (GLUCOPHAGE XR) 500 mg 24 hr tablet Take 2 tablets by mouth once daily. omeprazole (PRILOSEC) 40 mg capsule Take 1 capsule by mouth twice daily before meals. famotidine (PEPCID) 20 mg tablet Take 1 tablet by mouth twice daily. lidocaine (LIDODERM) 5 % Apply 1 Patch as directed every 24 hours. Remove after 12 hours. Location: wrist IBUPROFEN (MOTRIN ORAL) Take by mouth. levonorgestrel (MIRENA) 21 mcg/24 hours (8 yrs) 52 mg IUD 1 Each by INTRAUTERINE route one time only. No current facility-administered medications for this visit. ALLERGIES: Bee Sting, Chlorhexidine Gluconate, Codeine, Eggs [Egg], Emycin [Erythromycin], Fentanyl, Grass Pollen, Morphine, Penicillins, Sulfa (Sulfonamide Antibiotics), and Vicodin [Hydrocodone-Acetaminophen] PERSONAL HISTORY: Social History Tobacco Use Smoking status: Some Days Years: 13.00 Types: Cigarettes Smokeless tobacco: Never Tobacco comments: Someday smoker Vaping Use Vaping Use: Never used Substance Use Topics Alcohol use: Yes Comment: Occasionally Drug use: No FAMILY HISTORY: FAMILY HISTORY Problem Relation Age of Onset Hypertension Father Cancer Maternal Grandmother CERVICAL CANCER Stroke Maternal Grandmother HTN Hypertension Maternal Grandmother Stroke Maternal Grandfather HTN, DM Hypertension Maternal Grandfather Hypertension Paternal Grandmother Thyroid Paternal Grandmother Cancer Hypertension Paternal Grandfather Cancer Maternal Aunt CERVICAL Cancer Maternal Aunt CERVICAL Ischemic Heart Disease Maternal Uncle RI Ischemic Heart Disease Maternal Uncle RI Thyroid Paternal Aunt Cancer REVIEW OF SYMPTOMS: The review of systems data was entered by the nurse and reviewed by me Nursing Notes: Erin CanIWONA 09/18/2022 10:05 AM Signed REVIEW OF SYSTEMS: General: The patient denies fatigue, denies weight loss, notes weight gain, denies feeling hot, and notes feelings of cold. Eyes: The patient denies glaucoma, denies eye injur (more content not included)...[facility]03-17-[facility]23 History of Present illness Narrative* Dano Cid MD - 09/25/2022 2:39 PM EDT HISTORY AND PHYSICAL Magui Wylie 1975 REFERRING PHYSICIAN: Yris Romero MD CHIEF COMPLAINT: Consult (Umbilical hernia) HPI: Maugi is a 47 year old female with a complaint of a bulge and discomfort in her umbilical region. The patient notes discomfort in this area with straining. The symptoms have increased, over the past few months. The patient notes no symptoms of bowel obstruction and denies nausea or vomiting. The patient was seen by her primary care physician who felt the patient has a hernia. Magui was referred for evaluation and treatment. The patient is being seen by me today at the request of Dr. Yris Romero MD for my opinion and advice regarding Umbilical hernia without obstruction and without gangrene Abdominal pannus . PAST MEDICAL HISTORY Diagnosis Date Abdominal pain, other specified site Anxiety Attention deficit disorder without mention of hyperactivity Dysthymic disorder Depression (non-psychotic). Endometriosis Esophageal reflux Fasciitis feet Incarcerated ventral hernia 09/13/14 Nausea with vomiting PCOS (polycystic ovarian syndrome) 02/20/2011 [facility] - PAST MEDICAL HISTORY OF 1991 RHEUMATIC FEVER Varicose vein PAST SURGICAL HISTORY Procedure Laterality Date APPENDECTOMY DELIVERY ONLY 2007,2004,2010 EGD TRANSORAL BIOPSY SINGLE/MULTIPLE 12/05/2009 HH,reflux ESOPHAGOGASTRODUODENOSCOPY TRANSORAL DIAGNOSTIC 10/03/2014 EGD HERNIA REPAIR W/MESH 09-13-14 IMPLANT MESH OPN HERNIA RPR/DEBRIDEMENT CLOSURE 09/13/14 PAST SURGICAL HISTORY OF LAPARATOMY AND CYSTECTOMY PAST SURGICAL HISTORY OF carpectomy right wrist PAST SURGICAL HISTORY OF 11/20/2016 foot surgery right RPR 1ST INCAL/VNT HERNIA INCARCERATED 09/13/14 TONSILLECTOMY & ADENOIDECTOMY <AGE 14 Current Outpatient Medications Medication Sig LIDOCAINE VISCOUS 2 % solution Take 5 mL by mouth as needed. ondansetron orally disintegrating (ZOFRAN ODT) 4 mg disintegrating tablet Take 1-2 tablets by mouthevery 8 hours as needed for nausea/vomiting. spironolactone (ALDACTONE) 25 mg tablet Take 1 tablet by mouth once daily as needed (fluid retention). [START ON 10/10/2022] Methylphenidate (METADATE CD) 40 mg CD capsule Take 1 capsule by mouth once daily for 30 days. Do not start before October 10, 2022. [START ON 11/09/2022] Methylphenidate (METADATE CD) 40 mg CD capsule Take 1 capsule by mouth once daily for 30 days. Do not start before November 09, 2022. [START ON 12/09/2022] Methylphenidate (METADATE CD) 40 mg CD capsule Take 1 capsule by mouth once daily for 30 days. Do not start before December 09, 2022. Methylphenidate (METADATE CD) 40 mg CD capsule Take 1 capsule by mouth once daily for 30 days. cholecalciferol (VITAMIN D3) 400 unit tab Take 2 tablets by mouth once daily. metFORMIN ER (GLUCOPHAGE XR) 500 mg 24 hr tablet Take 2 tablets by mouth once daily. omeprazole (PRILOSEC) 40 mg capsule Take 1 capsule by mouth twice daily before meals. famotidine (PEPCID) 20 mg tablet Take 1 tablet by mouth twice daily. lidocaine (LIDODERM) 5 % Apply 1 Patch as directed every 24 hours. Remove after 12 hours. Location:wrist IBUPROFEN (MOTRIN ORAL) Take by mouth. levonorgestrel (MIRENA) 21 mcg/24 hours (8 yrs) 52 mg IUD 1 Each by INTRAUTERINE route one time only. No current facility-administered medications for this visit. ALLERGIES: Bee Sting, Chlorhexidine Gluconate, Codeine, Eggs [Egg], Emycin [Erythromycin], Fentanyl, Grass Pollen, Morphine, Penicillins, Sulfa (Sulfonamide Antibiotics), and Vicodin [Hydrocodone-Acetaminophen] PERSONAL HISTORY: Social History Tobacco Use Smoking status: Some Days Years: 13.00 Types: Cigarettes Smokeless tobacco: Never Tobacco comments: Someday smoker Vaping Use Vaping Use: Never used Substance Use Topics Alcohol use: Yes Comment: Occasionally Drug use: No FAMILY HISTORY: FAMILY HISTORY Problem Relation Age of Onset Hypertension Father Cancer Maternal Grandmother CERVICAL CANCER Stroke Maternal Grandmother HTN Hypertension Maternal Grandmother Stroke Maternal Grandfather HTN, DM Hypertension Maternal Grandfather Hypertension Paternal Grandmother Thyroid Paternal Grandmother Cancer Hypertension Paternal Grandfather Cancer Maternal Aunt CERVICAL Cancer Maternal Aunt CERVICAL Ischemic Heart Disease Maternal Uncle RI Ischemic Heart Disease Maternal Uncle RI Thyroid Paternal Aunt Cancer REVIEW OF SYMPTOMS: The review of systems data was entered by the nurse and reviewed by nj Nursing Notes: Erin Can LPN 09/18/2022 10:05 AM Signed REVIEW OF SYSTEMS: General: The patient denies fatigue, denies weight loss, notes weight gain, denies feeling hot, andnotes feelings of cold. Eyes: The patient denies glaucoma, denies eye injury/surgery, wears glasses or contacts. Ear/Nose/Throat: The patient notes allergies, notes hayfever, notes ear infections, and denies bloody noses. Cardiovascular: The patient denies chest pain, denies heart disease, denies high blood pressure,denies cardiac stent, denies prior heart attack, denies irregular heart beat, denies high cholesterol, denies poor circulation, denies heart failure, other cardiac issues, denies claudication, denies cold feet, denies peripheral arterial stent. Respiratory: The patient denies tuberculosis, denies pneumonia, denies frequent cough, denies pulmonary embolism, denies shortness of breath, and denies coughing up blood. Gastrointestinal: The patient denies difficulty swallowing, notes acid reflux, notes ulcers, notes vomiting, denies jaundice/hepatitis, denies gallbladder problems, denies black or tarry stools, denies hemorrhoids, denies bleeding from rectum, denies diverticulitis, denies constipation, denies diarrhea, denies loss of stool control, and notes hernias. Kidney/Bladder: The patient denies kidney stones, denies urine infections, and denies bloody urine. Skin: The patient denies a history of skin cancer, denies bleeding/changing moles, and denies a history of skin rash. Neurologic: The patient denies a history of epilepsy/convulsions, denies headaches, denies head/spinal injuries, and denies stroke/TIA. Psychiatric: The patient denies psychiatric medications, denies depression, and denies voices, denies substance abuse. Endocrine: The patient denies thyroid disorders, denies diabetes, and denies hormonal problems. Hematologic: The patient denies a history of bruising, denies bleeding, and denies anemia, denies blood clots. Infections: The patient denies a history of measles and mumps, notes rheumatic fever, and denies sexually transmitted diseases. Musculoskeletal: The patient denies back pain/injury, denies back problems, denies sciatica, notes knee/foot trouble, denies arthritis, or denies gout. When was patient's last Mammogram screening? none Last Colonoscopy: none Erin Can LPN PHYSICAL EXAMINATION: General: The patient is 47 year old female, well nourished, well hydrated in no acute distress. Thepatient is oriented to time, place, and person. VITALS: Blood pressure 158/88, pulse 110, temperature 36.2 C (97.2 F), height 177.8 cm (5' 10 ), weight 117.9 kg (260 lb), last menstrual period 04/11/2013, SpO2 97 %. Body mass index is 37.31 kg/m . HEENT: Normal cephalic, ataumatic, pupils are equally round, sclera are anicteric, mucous membranesare moist, oropharynx is clear. Neck has no masses, asymmetry or lymphadenopathy. Thyroid is unremarkable. Respiratory: Clear to auscultation and percussion. Normal respiratory excursion and pattern. Cardiac: Examination is regular rate and rhythm. Abdominal exam: Soft, nontender, with no palpable masses. No hepatosplenomegaly. A moderate reducible umbilical hernia, no right or left inguinal hernias are noted Rectal exam: exam deferred Extremities: no clubbing, cyanosis or edema. No adenopathy. Other: LABORATORY VALUES: As Noted RADIOLOGIC STUDIES: As Noted Assessment IMPRESSION: umbilical hernia PLAN: My plan is to perform a umbilical hernia repair with mesh. The planned surgical procedure wasdiscussed extensively with the patient. The risks, benefits, anticipated outcomes and possible complications were mentioned. Magui undersands that all hernia repair surgery has a chance of recurrenceand/or chronic post operative pain. My staff has also explained the procedure in understandable terms and the patient was given the option to take printed material concerning the planned procedure. The patient had the opportunity to ask questions concerning the planned procedure. The patient freelyconsents to the planned procedure. My findings have been communicated to Dr. Yris Romero MD via shared medical record. This note will be forwarded to Dr. Yris Romero MD. Diagnoses: (K42.9) Umbilical hernia without obstruction and without gangrene (E65) Abdominal pannus Anticipated CPT Code: umbilical hernia repair - 52788 Anticipated Anesthetic: General Patient weight: Blood pressure 158/88, pulse 110, temperature 36.2 C (97.2 F), height 177.8 cm (5' 10 ), weight 117.9 kg (260 lb), last menstrual period 04/11/2013, SpO2 97 %. BMI: Body mass index is37.31 kg/m . Planned antibiotic: clindamycin 900mg IVPB care professionals to [place] SCDs needed - Yes Return to Clinic: The patient is instructed to follow-up with me 1 week post operatively. Dano Cid III, MD documented in this encounter[facility] Nurse Note* Erin Can, IWONA - 09/18/2022 10:02 AM EST REVIEW OF SYSTEMS: General: The patient denies fatigue, denies weight loss, notes weight gain, denies feeling hot, andnotes feelings of cold. Eyes: The patient denies glaucoma, denies eye injury/surgery, wears glasses or contacts. Ear/Nose/Throat: The patient notes allergies, notes hayfever, notes ear infections, and denies bloody noses. Cardiovascular: The patient denies chest pain, denies heart disease, denies high blood pressure,denies cardiac stent, denies prior heart attack, denies irregular heart beat, denies high cholesterol, denies poor circulation, denies heart failure, other cardiac issues, denies claudication, denies cold feet, denies peripheral arterial stent. Respiratory: The patient denies tuberculosis, denies pneumonia, denies frequent cough, denies pulmonary embolism, denies shortness of breath, and denies coughing up blood. Gastrointestinal: The patient denies difficulty swallowing, notes acid reflux, notes ulcers, notes vomiting, denies jaundice/hepatitis, denies gallbladder problems, denies black or tarry stools, denies hemorrhoids, denies bleeding from rectum, denies diverticulitis, denies constipation, denies diarrhea, denies loss of stool control, and notes hernias. Kidney/Bladder: The patient denies kidney stones, denies urine infections, and denies bloody urine. Skin: The patient denies a history of skin cancer, denies bleeding/changing moles, and denies a history of skin rash. Neurologic: The patient denies a history of epilepsy/convulsions, denies headaches, denies head/spinal injuries, and denies stroke/TIA. Psychiatric: The patient denies psychiatric medications, denies depression, and denies voices, denies substance abuse. Endocrine: The patient denies thyroid disorders, denies diabetes, and denies hormonal problems. Hematologic: The patient denies a history of bruising, denies bleeding, and denies anemia, denies blood clots. Infections: The patient denies a history of measles and mumps, notes rheumatic fever, and denies sexually transmitted diseases. Musculoskeletal: The patient denies back pain/injury, denies back problems, denies sciatica, notes knee/foot trouble, denies arthritis, or denies gout. When was patient's last Mammogram screening? none Last Colonoscopy: none Erin Can LPN documented in this encounterPar[facility]03-07-[facility]23 NoteHNO ID: [id number] Author: Yris Romero MD Service: ? Author Type: Physician Type: Progress Notes Filed: 09/15/2022 11:45 PM Note Text: This note was created using [employer]. Subjective Magui S Boord is a 47 year old female. Patient presents with: F/U 3 Month SUBJECTIVE: Magui Wylie is a 47 year old year old lady here today for 3 month follow up appointment for review of medical conditions. Umbilical hernia--getting worse with regards to size. Also noted that the abdominal pannus from losing weight noted. Gets irritated under the pannus and can get sores. Seems like pannus/lower abdomen gets puffier at night after exercise. Gets itchy on right upper arm s/p nerve block as well as pannus. Depression Screening 07/25/2018 03/31/2021 09/15/2022 PHQ-2 Score 0 0 1 JESSICA-2 Total Score 0 - - Depression screening tool completed and reviewed. Based on score and interview, patient is not at risk for depression. Screening tool discussed with patient, and I recommended no further intervention at this time. PAST MEDICAL HISTORY Diagnosis Date Abdominal pain, other specified site Anxiety Attention deficit disorder without mention of hyperactivity Dysthymic disorder Depression (non-psychotic). Endometriosis Esophageal reflux Fasciitis feet Incarcerated ventral hernia 09/13/14 Nausea with vomiting PCOS (polycystic ovarian syndrome) 02/20/2011 PM[facility] - PAST MEDICAL HISTORY OF 1991 RHEUMATIC FEVER Varicose vein Current Outpatient Medications Medication Sig Methylphenidate (METADATE CD) 40 mg CD capsule Take 1 capsule by mouth once daily for 30 days. cholecalciferol (VITAMIN D3) 400 unit tab Take 2 tablets by mouth once daily. LIDOCAINE VISCOUS 2 % solution Take 5 mL by mouth as needed. metFORMIN ER (GLUCOPHAGE XR) 500 mg 24 hr tablet Take 2 tablets by mouth once daily. ondansetron orally disintegrating (ZOFRAN ODT) 4 mg disintegrating tablet Take 1-2 tablets by mouth every 8 hours as needed for nausea/vomiting. omeprazole (PRILOSEC) 40 mg capsule Take 1 capsule by mouth twice daily before meals. famotidine (PEPCID) 20 mg tablet Take 1 tablet by mouth twice daily. lidocaine (LIDODERM) 5 % Apply 1 Patch as directed every 24 hours. Remove after 12 hours. Location: wrist IBUPROFEN (MOTRIN ORAL) Take by mouth. levonorgestrel (MIRENA) 21 mcg/24 hours (8 yrs) 52 mg IUD 1 Each by INTRAUTERINE route one time only. Methylphenidate (METADATE CD) 40 mg CD capsule Take 1 capsule by mouth once daily for 30 days. Methylphenidate (METADATE CD) 40 mg CD capsule Take 1 capsule by mouth once daily for 30 days. Do not start before July 07, 2022. Methylphenidate (METADATE CD) 40 mg CD capsule Take 1 capsule by mouth once daily for 30 days. Do not start before June 07, 2022. No current facility-administered medications for this visit. Review of Systems Objective BP 152/88 Pulse 89 Temp (!) 35.7 ?C (96.3 ?F) Resp 18 Wt 119.3 kg (263 lb) LMP 04/11/2013 SpO2 98% BMI 37.19 kg/m? Last 5 Encounter Wt Readings: Date: Wt: 09/15/2022 119.3 kg (263 lb) 03/24/2022 114.3 kg (252 lb) 09/23/2021 113.4 kg (250 lb) 08/26/2021 117.9 kg (260 lb) 08/06/2021 123.7 kg (272 lb 12.8 oz) No waist measurement recorded Estimated body mass index is 37.19 kg/m? as calculated from the following: Height as of 09/23/21: 179.1 cm (5' 10.51 ). Weight as of this encounter: 119.3 kg (263 lb). Last 5 Encounter BP Readings: Date: BP: 09/15/2022 152/88 03/24/2022 136/88 09/23/2021 158/88 08/26/2021 146/98 08/19/2021 134/88 Physical Exam Constitutional: Appearance: Normal appearance. HENT: Head: Normocephalic. Right Ear: Tympanic membrane, ear canal and external ear normal. Left Ear: Tympanic membrane, ear canal and external ear normal. Eyes: Conjunctiva/sclera: Conjunctivae normal. Cardiovascular: Rate and Rhythm: Normal rate and regular rhythm. Heart sounds: Normal heart sounds. Pulmonary: Effort: Pulmonary effort is normal. Breath sounds: Normal breath sounds. Abdominal: Palpations: Abdomen is soft. Hernia: A hernia is present. Hernia is present in the umbilical area (Above belly button). Comments: Abdominal pannus noted due to weight loss Skin: General: Skin is warm and dry. Neurological: General: No focal deficit present. Mental Status: She is alert and oriented to person, place, and time. Psychiatric: Mood and Affect: Mood normal. Behavior: Behavior normal. Thought Content: Thought content normal. Judgment: Judgment normal. Assessment and Plan Encounter Diagnosis ICD-10-CM 1. Attention deficit disorder (ADD) without hyperactivity F98.8 Methylphenidate (METADATE CD) 40 mg CD capsule Methylphenidate (METADATE CD) 40 mg CD capsule Methylphenidate (METADATE CD) 40 mg CD capsule 2. Nausea R11.0 ondansetron orally disintegrating (ZOFRAN ODT) 4 mg disintegrating tablet Zofran prn helps. 3. Umbilical hernia (more content not included)...[facility] 09-15-2022 History of Present illness Narrative* Yris Romero MD - 09/15/2022 8:13 AM EST This note was created using [employer]. Subjective Magui Wylie is a 47 year old female. Patient presents with: F/U 3 Month SUBJECTIVE: Magui Wylie is a 47 year old year old lady here today for 3 month follow up appointment for review of medical conditions. Umbilical hernia--getting worse with regards to size. Also noted that the abdominal pannus from losing weight noted. Gets irritated under the pannus and can get sores. Seems like pannus/lower abdomen gets puffier at night after exercise. Gets itchy on right upper arm s/p nerve block as well as pannus. Depression Screening 07/25/2018 03/31/2021 09/15/2022 PHQ-2 Score 0 0 1 JESSICA-2 Total Score 0 - - Depression screening tool completed and reviewed. Based on score and interview, patient is not at risk for depression. Screening tool discussed with patient, and I recommended no further interventionat this time. PAST MEDICAL HISTORY Diagnosis Date Abdominal pain, other specified site Anxiety Attention deficit disorder without mention of hyperactivity Dysthymic disorder Depression (non-psychotic). Endometriosis Esophageal reflux Fasciitis feet Incarcerated ventral hernia 09/13/14 Nausea with vomiting PCOS (polycystic ovarian syndrome) 02/20/2011 PMH - PAST MEDICAL HISTORY OF 1991 RHEUMATIC FEVER Varicose vein Current Outpatient Medications Medication Sig Methylphenidate (METADATE CD) 40 mg CD capsule Take 1 capsule by mouth once daily for 30 days. cholecalciferol (VITAMIN D3) 400 unit tab Take 2 tablets by mouth once daily. LIDOCAINE VISCOUS 2 % solution Take 5 mL by mouth as needed. metFORMIN ER (GLUCOPHAGE XR) 500 mg 24 hr tablet Take 2 tablets by mouth once daily. ondansetron orally disintegrating (ZOFRAN ODT) 4 mg disintegrating tablet Take 1-2 tablets by mouthevery 8 hours as needed for nausea/vomiting. omeprazole (PRILOSEC) 40 mg capsule Take 1 capsule by mouth twice daily before meals. famotidine (PEPCID) 20 mg tablet Take 1 tablet by mouth twice daily. lidocaine (LIDODERM) 5 % Apply 1 Patch as directed every 24 hours. Remove after 12 hours. Location:wrist IBUPROFEN (MOTRIN ORAL) Take by mouth. levonorgestrel (MIRENA) 21 mcg/24 hours (8 yrs) 52 mg IUD 1 Each by INTRAUTERINE route one time only. Methylphenidate (METADATE CD) 40 mg CD capsule Take 1 capsule by mouth once daily for 30 days. Methylphenidate (METADATE CD) 40 mg CD capsule Take 1 capsule by mouth once daily for 30 days. Do not start before July 07, 2022. Methylphenidate (METADATE CD) 40 mg CD capsule Take 1 capsule by mouth once daily for 30 days. Do not start before June 07, 2022. No current facility-administered medications for this visit. Review of Systems Objective BP 152/88 Pulse 89 Temp (!) 35.7 C (96.3 F) Resp 18 Wt 119.3 kg (263 lb) LMP 04/11/2013 SpO2 98% BMI 37.19 kg/m Last 5 Encounter Wt Readings: Date: Wt: 09/15/2022 119.3 kg (263 lb) 03/24/2022 114.3 kg (252 lb) 09/23/2021 113.4 kg (250 lb) 08/26/2021 117.9 kg (260 lb) 08/06/2021 123.7 kg (272 lb 12.8 oz) No waist measurement recorded Estimated body mass index is 37.19 kg/m as calculated from the following: Height as of 09/23/21: 179.1 cm (5' 10.51 ). Weight as of this encounter: 119.3 kg (263 lb). Last 5 Encounter BP Readings: Date: BP: 09/15/2022 152/88 03/24/2022 136/88 09/23/2021 158/88 08/26/2021 146/98 08/19/2021 134/88 Physical Exam Constitutional: Appearance: Normal appearance. HENT: Head: Normocephalic. Right Ear: Tympanic membrane, ear canal and external ear normal. Left Ear: Tympanic membrane, ear canal and external ear normal. Eyes: Conjunctiva/sclera: Conjunctivae normal. Cardiovascular: Rate and Rhythm: Normal rate and regular rhythm. Heart sounds: Normal heart sounds. Pulmonary: Effort: Pulmonary effort is normal. Breath sounds: Normal breath sounds. Abdominal: Palpations: Abdomen is soft. Hernia: A hernia is present. Hernia is present in the umbilical area (Above belly button). Comments: Abdominal pannus noted due to weight loss Skin: General: Skin is warm and dry. Neurological: General: No focal deficit present. Mental Status: She is alert and oriented to person, place, and time. Psychiatric: Mood and Affect: Mood normal. Behavior: Behavior normal. Thought Content: Thought content normal. Judgment: Judgment normal. Assessment and Plan Encounter Diagnosis ICD-10-CM 1. Attention deficit disorder (ADD) without hyperactivity F98.8 Methylphenidate (METADATE CD) 40 mgCD capsule Methylphenidate (METADATE CD) 40 mg CD capsule Methylphenidate (METADATE CD) 40 mg CD capsule 2. Nausea R11.0 ondansetron orally disintegrating (ZOFRAN ODT) 4 mg disintegrating tablet Zofran prn helps. 3. Umbilical hernia without obstruction and without gangrene K42.9 CONSULT TO GENERAL SURGERY 4. Class 2 obesity due to excess calories with body mass index (BMI) of 37.0 to 37.9 in adult, unspecified whether serious comorbidity present E66.09 Z68.37 5. Fluid retention R60.9 spironolactone (ALDACTONE) 25 mg tablet 6. Abdominal pannus E65 CONSULT TO GENERAL SURGERY 7. Lipid screening Z13.220 LIPID PANEL, NONFASTING 8. Encounter for long-term current use of medication Z79.899 TOX SCREEN ROUT UR Above issues addressed with patient. Patient involved in shared decision making for management of medical issues. History and medications reviewed. Epic updated as needed Refills and/or prescriptions taken care of and meds adjusted as indicated after reviewed history, exam and labs. Health Maintenance reviewed. Updated record and/or ordered tests as recorded. Encouraged on efforts at healthy diet and regular exercise and adequate sleep. Needs to keep working on diet and exercise with lifestyle changes for effective weight loss as well as prevention of DM,and control of BP and lipids. Can try Zyrtec for itching; already on Claritin. See Dr. Cid to see if appropriate to do umbilical hernia surgery and consider surgery for abdominal pannus that seems to have become an issue since had lost a lot of weight. Yris Romero MD documented in this encounter[facility]03-[facility]-2023 Miscellaneous Notes* Telephone Encounter - Sabiha Ingram LPN - 09/09/2022 2:31 PM EST Spoke with pt and information listed below given. Pt verbalizes understanding. Sabiha Ingram LPN * Telephone Encounter - Yris Romero MD - 09/09/2022 12:45 PM EST Last filled 08/13 but sent today so can get processed. The following approved medication requests have been transmitted electronically. Requested Prescriptions Signed Prescriptions Disp Refills Methylphenidate (METADATE CD) 40 mg CD capsule 30 capsule 0 Sig: Take 1 capsule by mouth once daily for 30 days. Authorizing Provider: YRIS ROMERO MD * Telephone Encounter - Sri Hutchinson RN - 09/09/2022 10:50 AM EST Patient reports [facility] does not have the medication. Please send to [facility]. Patient has been identified by name and date of : Yes, Provider Dr. Romero Date 09-09-22 Time 10:52 am Patient phones for refill(s): Requested Prescriptions Pending Prescriptions Disp Refills Methylphenidate (METADATE CD) 40 mg CD capsule 30 capsule 0 Sig: Take 1 capsule by mouth once daily for 30 days. Date of last office visit in primary care: 06-16-22. Next appt: 09-15-22 Last 2 Encounter Wt Readings: Date: Wt: 03/24/2022 114.3 kg (252 lb) 09/23/2021 113.4 kg (250 lb) Previous labs/tests for medication: Blood Pressure: BUN (mg/dL) Date Value 08/06/2021 7 Sodium (mmol/L) Date Value 08/06/2021 140 Last 1 Encounter BP Readings: Date: BP: 03/24/2022 136/88 Liver Function: ALT (U/L) Date Value 07/03/2020 AST (U/L) Date Value 07/03/2020 Please advise. Thank you. Sri Hutchinson RN documented in this encounterPar[facility]02-[facility]-2023 Miscellaneous Notes* Telephone Encounter - Jennifer Rivera APRN.CNS - 08/13/2022 4:14 PM EST ok * Telephone Encounter - Renetta Serrano LPN - 08/13/2022 12:58 PM EST Patient calling [facility] pharmacy has not had her medication for days and not sure when it will come in.Patient asking if rx could be sent to [facility] pharmacy please. Reset to file to pharmacy. Please advise Patient has been identified by name and date of : Patient phones for refill(s): Requested Prescriptions Pending Prescriptions Disp Refills Methylphenidate (METADATE CD) 40 mg CD capsule 30 capsule 0 Sig: Take 1 capsule by mouth once daily for 30 days. Date of last office visit in primary care: 06/16/2022, has appt 09/15/2022 Last 2 Encounter Wt Readings: Date: Wt: 03/24/2022 114.3 kg (252 lb) 09/23/2021 113.4 kg (250 lb) Previous labs/tests for medication: Not applicable Please advise. Thank you. Renetta Serrano LPN documented in this encounterPar[facility]12-[facility]-2022 History of Present illness Narrative* Yris Romero MD - 06/16/2022 8:59 AM EST VIRTUAL VISIT PROGRESS NOTE This is a virtual visit using [employer] video visit. It required patient-provider interaction for themedical decision making as documented below. Magui Wylie is a 46 year old female seen for follow up. Noted that hurt right eyeball with makeup brush when sneezed; had to see eye doctor. Eyelids puffy.Wearing old glasses. Contacts make it feel better but told needs to remove. Things stable otherwise. Doing well on ADHD med. HISTORY REVIEWED (electronic chart updated): PAST MEDICAL HISTORY Diagnosis Date Abdominal pain, other specified site Anxiety Attention deficit disorder without mention of hyperactivity Dysthymic disorder Depression (non-psychotic). Endometriosis Esophageal reflux Fasciitis feet Incarcerated ventral hernia 09/13/14 Nausea with vomiting PCOS (polycystic ovarian syndrome) 02/20/2011 PMH - PAST MEDICAL HISTORY OF 1991 RHEUMATIC FEVER Varicose vein PAST SURGICAL HISTORY Procedure Laterality Date APPENDECTOMY DELIVERY ONLY 2007,2004,2010 EGD TRANSORAL BIOPSY SINGLE/MULTIPLE 12/05/2009 HH,reflux ESOPHAGOGASTRODUODENOSCOPY TRANSORAL DIAGNOSTIC 10/03/2014 EGD HERNIA REPAIR W/MESH 09-13-14 IMPLANT MESH OPN HERNIA RPR/DEBRIDEMENT CLOSURE 09/13/14 PAST SURGICAL HISTORY OF LAPARATOMY AND CYSTECTOMY PAST SURGICAL HISTORY OF carpectomy right wrist PAST SURGICAL HISTORY OF 11/20/2016 foot surgery right RPR 1ST INCAL/VNT HERNIA INCARCERATED 09/13/14 TONSILLECTOMY & ADENOIDECTOMY <AGE 14 FAMILY HISTORY Problem Relation Age of Onset Hypertension Father Cancer Maternal Grandmother CERVICAL CANCER Stroke Maternal Grandmother HTN Hypertension Maternal Grandmother Stroke Maternal Grandfather HTN, DM Hypertension Maternal Grandfather Hypertension Paternal Grandmother Thyroid Paternal Grandmother Cancer Hypertension Paternal Grandfather Cancer Maternal Aunt CERVICAL Cancer Maternal Aunt CERVICAL Ischemic Heart Disease Maternal Uncle [place] Ischemic Heart Disease Maternal Uncle RI Thyroid Paternal Aunt Cancer Social History Tobacco Use Smoking status: Some Days Years: 13.00 Types: Cigarettes Smokeless tobacco: Never Tobacco comments: Someday smoker Vaping Use Vaping Use: Never used Substance Use Topics Alcohol use: Yes Comment: Occasionally Drug use: No Current Outpatient Medications Medication Sig metFORMIN ER (GLUCOPHAGE XR) 500 mg 24 hr tablet Take 2 tablets by mouth once daily. Methylphenidate (METADATE CD) 40 mg CD capsule Take 1 capsule by mouth once daily for 30 days. Do not start before April 08, 2022. Methylphenidate (METADATE CD) 40 mg CD capsule Take 1 capsule by mouth once daily for 30 days. Do not start before May 08, 2022. Methylphenidate (METADATE CD) 40 mg CD capsule Take 1 capsule by mouth once daily for 30 days. Do not start before June 07, 2022. ondansetron orally disintegrating (ZOFRAN ODT) 4 mg disintegrating tablet Take 1-2 tablets by mouthevery 8 hours as needed for nausea/vomiting. Methylphenidate (METADATE CD) 40 mg CD capsule Take 1 capsule by mouth once daily for 30 days. Do not start before March 05, 2022. lidocaine viscous (LIDOCAINE VISCOUS) 2 % solution Take 5 mL by mouth as needed. omeprazole (PRILOSEC) 40 mg capsule Take 1 capsule by mouth twice daily before meals. famotidine (PEPCID) 20 mg tablet Take 1 tablet by mouth twice daily. cholecalciferol (VITAMIN D3) 400 unit tab Take 2 tablets by mouth once daily. lidocaine (LIDODERM) 5 % Apply 1 Patch as directed every 24 hours. Remove after 12 hours. Location:wrist IBUPROFEN (MOTRIN ORAL) Take by mouth. levonorgestrel (MIRENA) 20 mcg/24 hour (5 years) IUD 1 Each by INTRAUTERINE route one time only. No current facility-administered medications for this visit. ALLERGIES Allergen Reactions Bee Sting Swelling Chlorhexidine Gluco* Other: See Comments Skin felt like it was burning on fire. Codeine heart pounds Eggs [Egg] GI Upset Emycin [Erythromyci* Fentanyl GI Upset Grass Pollen Shortness of Breath Morphine Mental Status Change Penicillins Rash Sulfa (Sulfonamide * Mental Status Change Vicodin [Hydrocodon* Shortness of Breath HEART PALPITATIONS,SWEATING,WHEEZING REVIEW OF SYSTEMS: As noted in HPI PHYSICAL EXAMINATION: VIDEO EXAM: (if completed, performed via video enabled technology) GENERAL: alert and appropriate, in no distress, well-hydrated, well nourished, and happy, smiling, interactive HEAD: normocephalic, no abnormality or lesion noted RESPIRATORY: breathing non-labored Encounter Diagnosis ICD-10-CM 1. Attention deficit disorder (ADD) without hyperactivity F98.8 Methylphenidate (METADATE CD) 40 mgCD capsule Methylphenidate (METADATE CD) 40 mg CD capsule Methylphenidate (METADATE CD) 40 mg CD capsule CBC + DIFF 2. Leukocytosis, unspecified type D72.829 CBC + DIFF Chronic; continue to monitor 3. Encounter for long-term current use of medication Z79.899 COMP METABOLIC PANEL MAGNESIUM BLD Above issues addressed with patient. Patient involved in shared decision making for management of medical issues. History and medications reviewed. Epic updated as needed Refills and/or prescriptions taken care of and meds adjusted as indicated after reviewed history, exam and labs. Health Maintenance reviewed. Updated record and/or ordered tests as recorded. Encouraged on efforts at healthy diet and regular exercise and adequate sleep. Stable with control of ADHD. At this time benefits outweigh risks. Continue to monitor for adverse effects and indications for decreasing dose or tapering off. No signs of diversion or abuse of medication(s); no adverse effects. Continue present management. Noted sounds like has a corneal abrasion. Follow up with Ophthalmology as directed. Further evaluation and treatment as indicated. Yris Romero MD There are no Patient Instructions on file for this visit. documented in this encounterParma [facility]09-23-2022 Miscellaneous Notes* Telephone Encounter - Marcelle Cruz RN - 04/03/2022 8:54 AM EDT Pt called and is notified of providers message and instructions. Pt voices understanding. She reports she will go to , she has too much to do today to come in late. Marcelle Cruz RN * Telephone Encounter - Jennifer Rivera APRN.SONAL - 04/03/2022 8:22 AM EDT recommend a visit for evaluation and treatment, IM or UC OK * Telephone Encounter - Ksenia Mercado LPN - 04/03/2022 8:07 AM EDT Patient calls in, states that last week she was outside while someone was burning leaves and she became very congested and having her typical allergy symptoms. As the week has gone on she has sinus congestion, hoarse, slight cough, yellowish drainage, ear pain/congestion, and vertigo. She denies fever, shortness of breath, and wheezing. States that she would possibly be able to come in today for an appt with PCP but would also be ok if an antibiotic could be called in to [facility]. She testedat home for Covid and was negative. Please advise. documented in this encounterParma [facility]09-13-2022 History of Present illness Narrative* Yris Romero MD - 03/24/2022 8:15 AM EDT This note was created using [employer]. Subjective Magui Wylie is a 46 year old female. Patient presents with: Follow Up SUBJECTIVE: Magui Wylie is a 46 year old year old lady here today for follow up appointment for review of medical conditions. Life is hectic with kids back to school. Has ongoing fatigue. Was taking care of grandpa twice a day till he passed January. Getting 7 hours of sleep a night.. Noted reading a lot. PAST MEDICAL HISTORY Diagnosis Date Abdominal pain, other specified site Anxiety Attention deficit disorder without mention of hyperactivity Dysthymic disorder Depression (non-psychotic). Endometriosis Esophageal reflux Fasciitis feet Incarcerated ventral hernia 09/13/14 Nausea with vomiting PCOS (polycystic ovarian syndrome) 02/20/2011 [facility] - PAST MEDICAL HISTORY OF 1991 RHEUMATIC FEVER Varicose vein Current Outpatient Medications Medication Sig ondansetron orally disintegrating (ZOFRAN ODT) 4 mg disintegrating tablet Take 1-2 tablets by mouthevery 8 hours as needed for nausea/vomiting. Methylphenidate (METADATE CD) 40 mg CD capsule Take 1 capsule by mouth once daily for 30 days. Do not start before January 04, 2022. Methylphenidate (METADATE CD) 40 mg CD capsule Take 1 capsule by mouth once daily for 30 days. Do not start before February 03, 2022. Methylphenidate (METADATE CD) 40 mg CD capsule Take 1 capsule by mouth once daily for 30 days. Do not start before March 05, 2022. lidocaine viscous (LIDOCAINE VISCOUS) 2 % solution Take 5 mL by mouth as needed. omeprazole (PRILOSEC) 40 mg capsule Take 1 capsule by mouth twice daily before meals. famotidine (PEPCID) 20 mg tablet Take 1 tablet by mouth twice daily. Methylphenidate (METADATE CD) 40 mg CD capsule Take 1 capsule by mouth once daily for 30 days. Do not start before December 05, 2021. cholecalciferol (VITAMIN D3) 400 unit tab Take 2 tablets by mouth once daily. metFORMIN ER (GLUCOPHAGE XR) 500 mg 24 hr tablet Take 2 tablets by mouth once daily. lidocaine (LIDODERM) 5 % Apply 1 Patch as directed every 24 hours. Remove after 12 hours. Location:wrist IBUPROFEN (MOTRIN ORAL) Take by mouth. levonorgestrel (MIRENA) 20 mcg/24 hour (5 years) IUD 1 Each by INTRAUTERINE route one time only. No current facility-administered medications for this visit. Review of Systems Objective BP 136/88 Pulse 84 Wt 114.3 kg (252 lb) LMP 04/11/2013 SpO2 97% BMI 35.64 kg/m Last 5 Encounter Wt Readings: Date: Wt: 03/24/2022 114.3 kg (252 lb) 09/23/2021 113.4 kg (250 lb) 08/26/2021 117.9 kg (260 lb) 08/06/2021 123.7 kg (272 lb 12.8 oz) 08/05/2021 123.7 kg (272 lb 11.3 oz) No waist measurement recorded Estimated body mass index is 35.64 kg/m as calculated from the following: Height as of 09/23/21: 179.1 cm (5' 10.51 ). Weight as of this encounter: 114.3 kg (252 lb). Last 5 Encounter BP Readings: Date: BP: 03/24/2022 136/88 09/23/2021 158/88 08/26/2021 146/98 08/19/2021 134/88 08/08/2021 121/73 Physical Exam Constitutional: Appearance: Normal appearance. HENT: Head: Normocephalic. Eyes: Conjunctiva/sclera: Conjunctivae normal. Cardiovascular: Rate and Rhythm: Normal rate and regular rhythm. Heart sounds: Normal heart sounds. Pulmonary: Effort: Pulmonary effort is normal. Breath sounds: Normal breath sounds. Skin: General: Skin is warm and dry. Neurological: General: No focal deficit present. Mental Status: She is alert and oriented to person, place, and time. Psychiatric: Mood and Affect: Mood normal. Behavior: Behavior normal. Thought Content: Thought content normal. Judgment: Judgment normal. Component Latest Ref Rng & Units 07/03/2020 08/22/2020 08/06/2021 WBC 3.70 - 11.00 k/uL 12.97 (H) 13.34 (H) 14.07 (H) RBC 3.90 - 5.20 m/uL 5.19 5.19 4.86 Hemoglobin 11.5 - 15.5 g/dL 15.9 (H) 15.5 14.9 Hematocrit 36.0 - 46.0 % 49.6 (H) 48.0 (H) 45.5 MCV 80.0 - 100.0 fL 95.6 92.5 93.6 MCH 26.0 - 34.0 pG 30.6 29.9 30.7 MCHC 30.5 - 36.0 g/dL 32.1 32.3 32.7 RDW-CV 11.5 - 15.0 % 13.2 13.1 13.8 Platelet Count 150 - 400 k/uL 316 297 277 MPV 9.0 - 12.7 fL 9.4 9.3 9.1 Neut% % 65.2 71.5 Abs Neut (ANC) 1.45 - 7.50 k/uL 8.69 (H) 10.07 (H) Lymph% % 25.2 19.9 Abs Lymph 1.00 - 4.00 k/uL 3.36 2.80 Campbell% % 4.8 5.8 Abs Campbell <0.87 k/uL 0.64 0.81 Eosin% % 4.3 2.5 Abs Eosin <0.46 k/uL 0.58 (H) 0.35 Baso% % 0.5 0.3 Abs Baso <0.11 k/uL 0.07 0.04 Nucleated Reds 0 /100 WBC 0.0 0.0 Absolute nRBC <0.01 k/uL <0.01 <0.01 <0.01 Diff Type Auto Diff Auto Diff Protein, Total 6.3 - 8.0 g/dL 7.5 Albumin 3.9 - 4.9 g/dL 4.7 Calcium 8.5 - 10.2 mg/dL 9.7 8.7 Bilirubin, Total 0.2 - 1.3 mg/dL 0.3 Alkaline Phosphatase 34 - 123 U/L 75 AST 13 - 35 U/L 23 Glucose 74 - 99 mg/dL 88 88 BUN 7 - 21 mg/dL 7 7 Creatinine 0.58 - 0.96 mg/dL 0.70 0.71 Sodium 136 - 144 mmol/L 140 140 Potassium 3.7 - 5.1 mmol/L 4.2 4.3 Chloride 97 - 105 mmol/L 104 106 (H) CO2 22 - 30 mmol/L 25 23 Anion Gap 9 - 18 mmol/L 11 11 ALT 7 - 38 U/L 23 eGFR- >60 >60 eGFR-All Other Races . >60 >60 Magnesium 1.7 - 2.3 mg/dL 2.3 Assessment and Plan Encounter Diagnosis ICD-10-CM 1. PCOS (polycystic ovarian syndrome) E28.2 metFORMIN ER (GLUCOPHAGE XR) 500 mg 24 hr tablet 2. Attention deficit disorder (ADD) without hyperactivity F98.8 Methylphenidate (METADATE CD) 40 mgCD capsule Methylphenidate (METADATE CD) 40 mg CD capsule Methylphenidate (METADATE CD) 40 mg CD capsule 3. Chronic fatigue R53.82 4. Encounter for immunization Z23 PNEUMOCOCCAL VACCINE (PREVNAR 20) Above issues addressed with patient. Patient involved in shared decision making for management of medical issues. Needs to keep working on diet and exercise with lifestyle changes for effective weight loss as wellas prevention of DM, and control of BP and lipids. Stable with control of ADHD. No signs of diversion or abuse of medication(s); no adverse effects. Continue present management. History and medications reviewed. Epic updated as needed Refills and/or prescriptions taken care of and meds adjusted as indicated after reviewed history, exam and labs. Health Maintenance reviewed. Updated record and/or ordered tests as recorded. Encouraged on efforts at healthy diet and regular exercise and adequate sleep. Yris Romero MD [facility] History of Present illness Narrative* Yris Romero MD - 12/26/2021 10:00 AM EDT This note was created using [employer]. Subjective Magui Wylie is a 46 year old female. Patient presents with: Recheck: 3 month follow up SUBJECTIVE: Magui Wylie is a 46 year old year old lady here today for 3 month follow up appointment for review of medical conditions. Noted that has kept weight off that lost. Stressors ongoing. Taking care of Grandpa twice a week. Storm issues noted. Prefers Zofran disintegrating tablets. Doing well on Metadate. PAST MEDICAL HISTORY Diagnosis Date Abdominal pain, other specified site Anxiety Attention deficit disorder without mention of hyperactivity Dysthymic disorder Depression (non-psychotic). Endometriosis Esophageal reflux Fasciitis feet Incarcerated ventral hernia 09/13/14 Nausea with vomiting PCOS (polycystic ovarian syndrome) 02/20/2011 [facility] - PAST MEDICAL HISTORY OF 1991 RHEUMATIC FEVER Varicose vein Current Outpatient Medications Medication Sig omeprazole (PRILOSEC) 40 mg capsule Take 1 capsule by mouth twice daily before meals. famotidine (PEPCID) 20 mg tablet Take 1 tablet by mouth twice daily. Methylphenidate (METADATE CD) 40 mg CD capsule Take 1 capsule by mouth once daily for 30 days. Do not start before October 06, 2021. Methylphenidate (METADATE CD) 40 mg CD capsule Take 1 capsule by mouth once daily for 30 days. Do not start before November 05, 2021. Methylphenidate (METADATE CD) 40 mg CD capsule Take 1 capsule by mouth once daily for 30 days. Do not start before December 05, 2021. Methylphenidate (METADATE CD) 40 mg CD capsule Take 1 capsule by mouth once daily for 30 days. Do not start before August 31, 2021. cholecalciferol (VITAMIN D3) 400 unit tab Take 2 tablets by mouth once daily. metFORMIN ER (GLUCOPHAGE XR) 500 mg 24 hr tablet Take 2 tablets by mouth once daily. lidocaine (LIDODERM) 5 % Apply 1 Patch as directed every 24 hours. Remove after 12 hours. Location:wrist ondansetron (ZOFRAN) 8 mg tablet Take 1 tablet by mouth every 8 hours as needed for Nausea/Vomiting. IBUPROFEN (MOTRIN ORAL) Take by mouth. levonorgestrel (MIRENA) 20 mcg/24 hour (5 years) IUD 1 Each by INTRAUTERINE route one time only. No current facility-administered medications for this visit. Review of Systems Objective BP (P) 146/88 (BP Site: Left Arm, BP Position: Sitting, BP Cuff Size: Large Adult) Pulse (P) 78 Resp (P) 16 Wt (P) 112.9 kg (249 lb) LMP 04/11/2013 BMI (P) 35.21 kg/m Last 5 Encounter Wt Readings: Date: Wt: 09/23/2021 113.4 kg (250 lb) 08/26/2021 117.9 kg (260 lb) 08/06/2021 123.7 kg (272 lb 12.8 oz) 08/05/2021 123.7 kg (272 lb 11.3 oz) 07/15/2021 121.1 kg (267 lb) No waist measurement recorded Estimated body mass index is 35.21 kg/m (pended) as calculated from the following: Height as of 09/23/21: 179.1 cm (5' 10.51 ). Weight as of this encounter: (P) 112.9 kg (249 lb). Last 5 Encounter BP Readings: Date: BP: 09/23/2021 158/88 08/26/2021 146/98 08/19/2021 134/88 08/08/2021 121/73 08/06/2021 128/86 Physical Exam Constitutional: Appearance: Normal appearance. HENT: Head: Normocephalic. Eyes: Conjunctiva/sclera: Conjunctivae normal. Cardiovascular: Rate and Rhythm: Normal rate and regular rhythm. Heart sounds: Normal heart sounds. Pulmonary: Effort: Pulmonary effort is normal. Breath sounds: Normal breath sounds. Skin: General: Skin is warm and dry. Neurological: General: No focal deficit present. Mental Status: She is alert and oriented to person, place, and time. Psychiatric: Mood and Affect: Mood normal. Behavior: Behavior normal. Thought Content: Thought content normal. Judgment: Judgment normal. Stab phlebectomy scars noted on left leg. . Assessment and Plan ASSESSMENT/PLAN: 1. Attention deficit disorder (ADD) without hyperactivity - ICD9: 314.00, ICD10: F98.8 (primary diagnosis) Stable on med Continue present management. - METHYLPHENIDATE CD 40 MG BIPHASIC 30-70 CAPSULE,EXTENDED RELEASE - METHYLPHENIDATE CD 40 MG BIPHASIC 30-70 CAPSULE,EXTENDED RELEASE - METHYLPHENIDATE CD 40 MG BIPHASIC 30-70 CAPSULE,EXTENDED RELEASE 2. Nausea - ICD9: 787.02, ICD10: R11.0 prn use helps - ONDANSETRON 4 MG DISINTEGRATING TABLET 3. Gastroesophageal reflux disease with esophagitis, unspecified whether hemorrhage - ICD9: 530.11,ICD10: K21.00 - Continue present management. Lidocaine viscous given to make GI cocktail as needed (minus the benadryl) Allergies acting up now. Yris Romero MD [facility] Miscellaneous Notes* Telephone Encounter - Yris Romero MD - 12/13/2021 11:50 AM EDT Okayed * Telephone Encounter - Jing Reyna RN - 12/13/2021 10:23 AM EDT Patient has been identified by name and date of : Yes Patient phones for refill(s): Pending Prescriptions Disp Refills OMEPRAZOLE 40 MG CAPSULE,DELAYED RELEASE 60 capsule 11 Sig: Take 1 capsule by mouth twice daily before meals. MALATHI: No FAMOTIDINE 20 MG TABLET 60 tablet 11 Sig: Take 1 tablet by mouth twice daily. MALATHI: No Date of last office visit in primary care: 03/31/21 ([facility]), NOV: 12/26/21 Last 2 Encounter Wt Readings: Date: Wt: 09/23/2021 113.4 kg (250 lb) 08/26/2021 117.9 kg (260 lb) Please advise. Thank you. Jing Reyna RN documented [facility] History of Present illness Narrative* Yris Romero MD - 09/26/2021 3:50 PM EDT VIRTUAL VISIT PROGRESS NOTE This is a virtual visit using [employer] video visit. It required patient-provider interaction for themedical decision making as documented below. Magui Wylie is a 46 year old female seen for 3 month follow up. Life still crazy. Taking care of grandpa (post-COVID issues). 3 times a day goes to check on him. Noted has close relationship with her grandpa. Disagreements with rest of family on his care, They have him on Hospice. He is slowly getting stronger. Dysphagia issues. Family not getting him out of bed. Metadate still effective for ADHD. Still healing from stab phlebectomy. Still some sensitivity. Wearing stockings as needed. Elevates when able. Stays active though. HISTORY REVIEWED (electronic chart updated): PAST MEDICAL HISTORY Diagnosis Date Abdominal pain, other specified site Anxiety Attention deficit disorder without mention of hyperactivity Dysthymic disorder Depression (non-psychotic). Endometriosis Esophageal reflux Fasciitis feet Incarcerated ventral hernia 09/13/14 Nausea with vomiting PCOS (polycystic ovarian syndrome) 02/20/2011 PM[facility] - PAST MEDICAL HISTORY OF 1992 RHEUMATIC FEVER Varicose vein PAST SURGICAL HISTORY Procedure Laterality Date APPENDECTOMY DELIVERY ONLY 2007,2004,2010 EGD TRANSORAL BIOPSY SINGLE/MULTIPLE 12/05/2009 HH,reflux ESOPHAGOGASTRODUODENOSCOPY TRANSORAL DIAGNOSTIC 10/03/2014 EGD HERNIA REPAIR W/MESH 09-13-14 IMPLANT MESH OPN HERNIA RPR/DEBRIDEMENT CLOSURE 09/13/14 PAST SURGICAL HISTORY OF LAPARATOMY AND CYSTECTOMY PAST SURGICAL HISTORY OF carpectomy right wrist PAST SURGICAL HISTORY OF 11/20/2016 foot surgery right RPR 1ST INCAL/VNT HERNIA INCARCERATED 09/13/14 TONSILLECTOMY & ADENOIDECTOMY <AGE 12 FAMILY HISTORY Problem Relation Age of Onset Hypertension Father Cancer Maternal Grandmother CERVICAL CANCER Stroke Maternal Grandmother HTN Hypertension Maternal Grandmother Stroke Maternal Grandfather HTN, DM Hypertension Maternal Grandfather Hypertension Paternal Grandmother Thyroid Paternal Grandmother Cancer Hypertension Paternal Grandfather Cancer Maternal Aunt CERVICAL Cancer Maternal Aunt CERVICAL Ischemic Heart Disease Maternal Uncle RI Ischemic Heart Disease Maternal Uncle RI Thyroid Paternal Aunt Cancer Social History Tobacco Use Smoking status: Current Some Day Smoker Years: 13.00 Types: Cigarettes Smokeless tobacco: Never Used Tobacco comment: Someday smoker Vaping Use Vaping Use: Never used Substance Use Topics Alcohol use: Yes Comment: Occasionally Drug use: No Current Outpatient Medications Medication Sig Methylphenidate (METADATE CD) 40 mg CD capsule Take 1 capsule by mouth once daily for 30 days. Do not start before August 31, 2021. Methylphenidate (METADATE CD) 40 mg CD capsule Take 1 capsule by mouth once daily for 30 days. Do not start before August 01, 2021. cholecalciferol (VITAMIN D3) 400 unit tab Take 2 tablets by mouth once daily. Methylphenidate (METADATE CD) 40 mg CD capsule Take 1 capsule by mouth once daily for 30 days. metFORMIN ER (GLUCOPHAGE XR) 500 mg 24 hr tablet Take 2 tablets by mouth once daily. famotidine (PEPCID) 20 mg tablet Take 1 tablet by mouth twice daily. omeprazole (PRILOSEC) 40 mg capsule Take 1 capsule by mouth twice daily before meals. lidocaine (LIDODERM) 5 % Apply 1 Patch as directed every 24 hours. Remove after 12 hours. Location:wrist ondansetron (ZOFRAN) 8 mg tablet Take 1 tablet by mouth every 8 hours as needed for Nausea/Vomiting. IBUPROFEN (MOTRIN ORAL) Take by mouth. levonorgestrel (MIRENA) 20 mcg/24 hour (5 years) IUD 1 Each by INTRAUTERINE route one time only. No current facility-administered medications for this visit. ALLERGIES Allergen Reactions Bee Sting Swelling Chlorhexidine Gluco* Other: See Comments Skin felt like it was burning on fire. Codeine heart pounds Eggs [Egg] GI Upset Emycin [Erythromyci* Fentanyl GI Upset Grass Pollen Shortness of Breath Morphine Mental Status Change Penicillins Rash Sulfa (Sulfonamide * Mental Status Change Vicodin [Hydrocodon* Shortness of Breath HEART PALPITATIONS,SWEATING,WHEEZING REVIEW OF SYSTEMS: As noted in HPI PHYSICAL EXAMINATION: VIDEO EXAM: (if completed, performed via video enabled technology) GENERAL: alert and appropriate, in no distress, well-hydrated, well nourished and happy, smiling, interactive HEAD: normocephalic, no abnormality or lesion noted EYES: no injection and visual acuity is grossly normal RESPIRATORY: breathing non-labored ASSESSMENT/PLAN: Encounter Diagnosis ICD-10-CM 1. Attention deficit disorder (ADD) without hyperactivity F98.8 Methylphenidate (METADATE CD) 40 mgCD capsule Methylphenidate (METADATE CD) 40 mg CD capsule Methylphenidate (METADATE CD) 40 mg CD capsule 2. Generalized anxiety disorder F41.1 Noted stressors with grandpa's failing health 3. Varicose veins of left lower extremity with pain I83.812 Had outpatient stab phlebectomy; noted still painful; wearing stockings 1. Attention deficit disorder (ADD) without hyperactivity - ICD9: 314.00, ICD10: F98.8 Stable with control of ADHD. No signs of diversion or abuse of medication(s); no adverse effects. Continue present management. - METHYLPHENIDATE CD 40 MG BIPHASIC 30-70 CAPSULE,EXTENDED RELEASE - METHYLPHENIDATE CD 40 MG BIPHASIC 30-70 CAPSULE,EXTENDED RELEASE - METHYLPHENIDATE CD 40 MG BIPHASIC 30-70 CAPSULE,EXTENDED RELEASE 2. Generalized anxiety disorder - ICD9: 300.02, ICD10: F41.1 Emotional support given. Noted helping to take care of Grandpa. 3. Varicose veins of left lower extremity with pain - ICD9: 454.8, ICD10: I83.812 Noted pain after the procedure but overall doing well, Yris Romero MD There are no Patient Instructions on file for this visit. I spent a total of 35+ minutes on the date of the service which included preparing to see the patient, [id number] patient care, completing clinical documentation, obtaining and/or reviewing separately obtained history, performing a medically appropriate examination, counseling and educating the pa tient/family/caregiver and ordering medications, tests, or procedures Yris Romero MD documented [facility] NoteHNO ID: [id number] Author: Neto Nick APRN.BRAND STRATEGY MANAGER Service: Anesthesiology Author Type: Nurse Senior Regulatory Affairs Specialist Type: Anesthesia Procedure Notes Filed: 08/08/2021 1:30 PM Note Text: ANESTHESIOLOGY PROCEDURE NOTE Airway General Information Procedure Start Time/Medication Administration: 08/08/2021 1:26 PM Patient location during procedure: OR Timeout Performed Pre-procedure: timeout performed Consent Obtained: Yes Patient identity confirmed: arm band and patient Staffing BRAND STRATEGY MANAGER: Neto Nick APRN.BRAND STRATEGY MANAGER Performed by: BRAND STRATEGY MANAGER Indications and Patient Condition Preoxygenated: yes Patient position: sniffing Indications for airway management: anesthesia anesthesia circuit Method: asleep Airway Accessory: LMA Final Airway Details Final airway type: supraglottic airway Number of attempts at approach: 1 Final Supraglottic Airway: i-gel Size 4 Seal Adequate: yes SIGNATURE: Neto Nick APRN.BRAND STRATEGY MANAGER PATIENT NAME: Magui Wylie DATE: August 08, 2021 TIME: 1:30 PM [id number]* Diagnosis Gastroesophageal reflux disease with esophagitis documented in this encounter [facility] note* Diagnosis Attention deficit disorder (ADD) without hyperactivity- Primary Generalized anxiety disorder Varicose veins of left lower extremity with pain Varicose veins of lower extremities with other complications documented in this encounter [facility] note* Diagnosis Encounter for screening mammogram for breast cancer documented in this encounter [facility] note* Diagnosis Attention deficit disorder (ADD) without hyperactivity- Primary Nausea Nausea alone Gastroesophageal reflux disease with esophagitis, unspecified whether hemorrhage documented in this encounter [facility] note* Diagnosis PCOS (polycystic ovarian syndrome)- Primary Polycystic ovaries Attention deficit disorder (ADD) without hyperactivity Chronic fatigue Other malaise and fatigue Encounter for immunization Need for other specified prophylactic vaccination against single bacterial disease documented in this encounter [facility] note* Diagnosis Attention deficit disorder (ADD) without hyperactivity- Primary Leukocytosis, unspecified type Encounter for long-term current use of medication documented in this encounter [facility] note* Diagnosis Attention deficit disorder (ADD) without hyperactivity documented in this encounter [facility] note* Diagnosis Attention deficit disorder (ADD) without hyperactivity documented in this encounter [facility] note* Diagnosis Attention deficit disorder (ADD) without hyperactivity- Primary Nausea Nausea alone Umbilical hernia without obstruction and without gangrene Class 2 obesity due to excess calories with body mass index (BMI) of 37.0 to 37.9 in adult, unspecified whether serious comorbidity present Fluid retention Other fluid overload Abdominal pannus Localized adiposity Lipid screening Screening for lipoid disorders Encounter for long-term current use of medication documented in this encounter [facility] note* Diagnosis Umbilical hernia without obstruction and without gangrene Abdominal pannus Localized adiposity Umbilical hernia without obstruction and without gangrene Abdominal pannus Localized adiposity [facility] Diagnosis Pre-operative examination- Primary Preoperative examination, unspecified Current smoker Tobacco use disorder Gastroesophageal reflux disease without esophagitis Esophageal reflux Leukocytosis, unspecified type PCOS (polycystic ovarian syndrome) Polycystic ovaries Attention deficit disorder, unspecified hyperactivity presence Umbilical hernia without obstruction and without gangrene Abdominal pannus Localized adiposity documented in this encounter [facility] note* Diagnosis Post-op pain- Primary Other acute postoperative pain S/P hernia repair Other postprocedural status documented in this encounter [facility] note* Diagnosis Encounter for screening mammogram for breast cancer documented in this encounter [facility] note* Diagnosis Attention deficit disorder (ADD) without hyperactivity- Primary Gastroesophageal reflux disease with esophagitis without hemorrhage documented in this encounter [facility] note* Diagnosis Attention deficit disorder (ADD) without hyperactivity [facility]* Diagnosis Infection in abdomen (HCC) Unspecified peritonitis documented in this encounter [facility] note* Diagnosis Attention deficit disorder (ADD) without hyperactivity documented in this encounter [facility] note* Diagnosis Attention deficit disorder (ADD) without hyperactivity documented in this encounter [facility] for referral (narrative)* Diagnostic Procedure Only (Routine) - Pending Review Specialty Diagnoses / Procedures Referred By Sonia ramirez Referred To Contact [facility] Diagnoses Encounter for screening mammogram for breast cancer Procedures MICHAEL SCREENING SCREENING MAMMOGRAPHY BI 2-VIEW BREAST INC Yris Welsh MD [address] [place] [address] [facility] [address] [place] [id number] Referral ID Status Reason Start Date Expiration Date Visits Requested Visits Authorized [id number] Pending Review Auto-Generat ed Referral 01/07/2022 02/06/2023 1 1 [facility] for referral (narrative)* Diagnostic Procedure Only (Routine) - Pending Review Specialty Diagnoses / Procedures Referred By Sonia ramirez Referred To Contact [facility] Diagnoses Encounter for screening mammogram for breast cancer Procedures MICHAEL SCREENING SCREENING MAMMOGRAPHY BI 2-VIEW BREAST INC Yris Welsh, MD [address] [place] [address] [facility] [address] [place] [address] Referral ID Status Reason Start Date Expiration Date Visits Requested Visits Authorized [id number] Pending Review Auto-Generat ed Referral 12/09/2022 01/08/2024 1 1 [facility] Summary Purpose Family History No Family History Records FoundNo Family History Records Found Advance Directives Documents on File Type Date Recorded Patient Payroll Bookkeeper Expl anation Advance Directive(s) Advance Directive(s) 08/08/2021 10:24 AM Advance Directive(s) 08/08/2021 11:38 AM Documents on File Type Date Recorded Patient Payroll Bookkeeper Expl anation Advance Directive(s) Advance Directive(s) 08/08/2021 10:24 AM Advance Directive(s) 08/08/2021 11:38 AM Reason for Referral Specialty Diagnoses / Procedures Referred By Contac t Referred To Contact General Surgery Diagnoses Umbilical hernia without obstruction and without gangrene Abdominal pannus Procedures CONSULT TO GENERAL SURGERY OFFICE/OUTPATIENT NEW HIGH MDM 60-74 MINUTES Yris Romero MD [address] [place] [address] Dano Cid MD [address] [place] [address] Referral ID Status Reason Start Date Expiration Date Visits Requested Visits Authorized [id number] Authorized PCP Requested Referral 09/15/2022 09/15/2023 1 1 Specialty Diagnoses / Procedures Referred By Contac t Referred To Contact Diagnoses Attention deficit disorder (ADD) without hyperactivity Stephanie Nova APRN.[facility] [address] [place] [address] Referral ID Status Reason Start Date Expiration Date Visits Re quested Visits Authorized [id number] Closed 1 1 Specialty Diagnoses / Procedures Referred By Contac t Referred To Contact CT IMAGING Diagnoses Infection in abdomen (HCC) Procedures CT ABD/PEL W IVCON CT ABD & PELVIS W/CONTRAST Marcelle Cooley PA-C [address] [facility] [place] [address] [place] [address] Referral ID Status Reason Start Date Expiration Date V isits Requested Visits Authorized [id number] Closed Auto-Generate d Referral 11/20/2022 01/19/2023 2 2 Specialty Diagnoses / Procedures Referred By Contac t Referred To Contact Diagnoses Attention deficit disorder (ADD) without hyperactivity Yris Romero MD [address] [place] [address] Referral ID Status Reason Start Date Expiration Date Visits Re quested Visits Authorized [id number] Closed 1 1 Additional Source Comments INFORMATION SOURCE (unrecogn ized section and content) DATE CREATED AUTHOR AUTHOR'S ORGANIZ ATION 07/18/2023 [facility] Source Comments (unrecognize d section and content) In the event this informatio n is protected by the Federal Confidentiality of Alcohol and Drug Abuse Patient Records regulations: The Federal rules restrict any use of the information to criminally investigate or prosecute any alcohol or drug abuse patient.[facility] the event this information is protected by the Federal Confidentiality of Alcohol and Drug Abuse Patient Records regulations: The Federal rules restrict any use of the information to criminally investigate or prosecute any alcohol or drug abuse patient.[facility] the event this information is protected by the Federal Confidentiality of Alcohol and Drug Abuse Patient Records regulations: The Federal rules restrict any use of the information to criminally investigate or prosecute any alcohol or drug abuse patient.[facility] the event this information is protected by the Federal Confidentiality of Alcohol and Drug Abuse Patient Records regulations: The Federal rules restrict any use of the information to criminally investigate or prosecute any alcohol or drug abuse patient.[facility] the event this information is protected by the Federal Confidentiality of Alcohol and Drug Abuse Patient Records regulations: The Federal rules restrict any use of the information to criminally investigate or prosecute any alcohol or drug abuse patient.[facility] the event this information is protected by the Federal Confidentiality of Alcohol and Drug Abuse Patient Records regulations: The Federal rules restrict any use of the information to criminally investigate or prosecute any alcohol or drug abuse patient.[facility] the event this information is protected by the Federal Confidentiality of Alcohol and Drug Abuse Patient Records regulations: The Federal rules restrict any use of the information to criminally investigate or prosecute any alcohol or drug abuse patient.[facility] the event this information is protected by the Federal Confidentiality of Alcohol and Drug Abuse Patient Records regulations: The Federal rules restrict any use of the information to criminally investigate or prosecute any alcohol or drug abuse patient.[facility] the event this information is protected by the Federal Confidentiality of Alcohol and Drug Abuse Patient Records regulations: The Federal rules restrict any use of the information to criminally investigate or prosecute any alcohol or drug abuse patient.[facility] the event this information is protected by the Federal Confidentiality of Alcohol and Drug Abuse Patient Records regulations: The Federal rules restrict any use of the information to criminally investigate or prosecute any alcohol or drug abuse patient.[facility] the event this information is protected by the Federal Confidentiality of Alcohol and Drug Abuse Patient Records regulations: The Federal rules restrict any use of the information to criminally investigate or prosecute any alcohol or drug abuse patient.[facility] the event this information is protected by the Federal Confidentiality of Alcohol and Drug Abuse Patient Records regulations: The Federal rules restrict any use of the information to criminally investigate or prosecute any alcohol or drug abuse patient.[facility] the event this information is protected by the Federal Confidentiality of Alcohol and Drug Abuse Patient Records regulations: The Federal rules restrict any use of the information to criminally investigate or prosecute any alcohol or drug abuse patient.[facility] the event this information is protected by the Federal Confidentiality of Alcohol and Drug Abuse Patient Records regulations: The Federal rules restrict any use of the information to criminally investigate or prosecute any alcohol or drug abuse patient.[facility] HospitalIn the event this information is protected by the Federal Confidentiality of Alcohol and Drug Abuse Patient Records regulations: The Federal rules restrict any use of the information to criminally investigate or prosecute any alcohol or drug abuse patient.[facility] HospitalIn the event this information is protected by the Federal Confidentiality of Alcohol and Drug Abuse Patient Records regulations: The Federal rules restrict any use of the information to criminally investigate or prosecute any alcohol or drug abuse patient.[facility] HospitalIn the event this information is protected by the Federal Confidentiality of Alcohol and Drug Abuse Patient Records regulations: The Federal rules restrict any use of the information to criminally investigate or prosecute any alcohol or drug abuse patient.[facility] HospitalIn the event this information is protected by the Federal Confidentiality of Alcohol and Drug Abuse Patient Records regulations: The Federal rules restrict any use of the information to criminally investigate or prosecute any alcohol or drug abuse patient.[facility] HospitalIn the event this information is protected by the Federal Confidentiality of Alcohol and Drug Abuse Patient Records regulations: The Federal rules restrict any use of the information to criminally investigate or prosecute any alcohol or drug abuse patient.[facility] HospitalIn the event this information is protected by the Federal Confidentiality of Alcohol and Drug Abuse Patient Records regulations: The Federal rules restrict any use of the information to criminally investigate or prosecute any alcohol or drug abuse patient.[facility] HospitalIn the event this information is protected by the Federal Confidentiality of Alcohol and Drug Abuse Patient Records regulations: The Federal rules restrict any use of the information to criminally investigate or prosecute any alcohol or drug abuse patient.[facility] HospitalIn the event this information is protected by the Federal Confidentiality of Alcohol and Drug Abuse Patient Records regulations: The Federal rules restrict any use of the information to criminally investigate or prosecute any alcohol or drug abuse patient.[facility] HospitalIn the event this information is protected by the Federal Confidentiality of Alcohol and Drug Abuse Patient Records regulations: The Federal rules restrict any use of the information to criminally investigate or prosecute any alcohol or drug abuse patient.[facility] Reason for Visit (unrecogniz ed section and content) Reason Comments Follow Up Reason Comments Recheck 3 month follow up Reason Comments Sinus Problem Reason Comments Follow Up ADD Reason Onset Date Comments Refill Request 08/13/2022 pharmacy does no t have medication needs rx sent to another Reason Onset Date Comments Refill Request 09/09/2022 Reason Comments F/U 3 Month Reason Comments Consult Umbilical hernia Specialty Diagnoses / Procedures Referred By Sonia t Referred To Contact General Surgery Diagnoses Umbilical hernia without obstruction and without gangrene Abdominal pannus Procedures CONSULT TO GENERAL SURGERY OFFICE/OUTPATIENT [facility] MDM 60-74 MINUTES Yris Romero MD [address] [place] [address] Dano Cid MD [address] [place] [address] Referral ID Status Reason Start Date Expiration Date V isits Requested Visits Authorized [id number] Closed PCP Requested Referral 09/15/2022 09/15/2023 1 1 Reason Comments Pre-Op Visit Reason Comments 10/28/2022 UMBILICAL HERNIA REPAIR W/ MES H MAZARIEGOS Reason Comments Post Op Hernia repair Reason Comments Appointment Reason Comments Patient Update Reason Comments F/U 3 Month Reason Comments Med Change Request Reason Onset Date Comments Refill Request 04/19/[address] Specialty Diagnoses / Procedures Referred By Sonia t Referred To Contact CT IMAGING Diagnoses Infection in abdomen (HCC) Procedures CT ABD/PEL W IVCON CT ABD & PELVIS W/CONTRAST Marcelle Cooley PA-C [address] [place] [address] [place] [address] Referral ID Status Reason Start Date Expiration Date V isits Requested Visits Authorized [id number] Closed Auto-Generate d Referral 11/20/2022 01/19/2023 2 2 Reason Comments Medication Problem Reason Onset Date Comments Refill Request 08/20/2023 Care Teams (unrecognized sec tion and content) Machine Ii Coremaker Relationship Specialty Start Date End Date Yris Romero MD [address] [place] [id number] PCP - General Internal Medicine 07/25/18 Machine Ii Coremaker Relationship Specialty Start Date End Date Yris Romero MD [address] [place] [address] PCP - General Internal Medicine 07/25/18 Machine Ii Coremaker Relationship Specialty Start Date End Date Yris Romero MD [address] [place] [address] PCP - General Internal Medicine 07/25/18 Machine Ii Coremaker Relationship Specialty Start Date End Date Yris Romero MD [address] [place] [address] PCP - General Internal Medicine 07/25/18 Machine Ii Coremaker Relationship Specialty Start Date End Date Yris Romero MD [address] [place] [address] PCP - General Internal Medicine 07/25/18 Machine Ii Coremaker Relationship Specialty Start Date End Date Yris Romero MD [address] [place] [address] PCP - General Internal Medicine 07/25/18 Machine Ii Coremaker Relationship Specialty Start Date End Date Yris Romero MD [address] [place] [address] PCP - General Internal Medicine 07/25/18 Machine Ii Coremaker Relationship Specialty Start Date End Date Yris Romero MD [address] [place] [address] PCP - General Internal Medicine 07/25/18 Machine Ii Coremaker Relationship Specialty Start Date End Date Yris Romero MD [facility] [place] [address] PCP - General Internal Medicine 07/25/18 Machine Ii Coremaker Relationship Specialty Start Date End Date Yris Romero MD [address] [place] [address], [place] [address] PCP - General Internal Medicine 07/25/18 Machine Ii Coremaker Relationship Specialty Start Date End Date Yris Romero MD [address] [place] [address], [place] [address] PCP - General Internal Medicine 07/25/18 Machine Ii Coremaker Relationship Specialty Start Date End Date Yris Romero MD [address] [place] [address], [place] [address] PCP - General Internal Medicine 07/25/18 Machine Ii Coremaker Relationship Specialty Start Date End Date Yris Romero MD [facility] [place] [address] PCP - General Internal Medicine 07/25/18 Machine Ii Coremaker Relationship Specialty Start Date End Date Yris Romero MD [facility] [place] [address] PCP - General Internal Medicine 07/25/18 Machine Ii Coremaker Relationship Specialty Start Date End Date Yris Romero MD [address] [place] [address], [place] [address] PCP - General Internal Medicine 07/25/18 Machine Ii Coremaker Relationship Specialty Start Date End Date Yris Romero MD [address] [place] [address] PCP - General Internal Medicine 07/25/18 Machine Ii Coremaker Relationship Specialty Start Date End Date Yris Romero MD [address] [place] [address] PCP - General Internal Medicine 07/25/18 Machine Ii Coremaker Relationship Specialty Start Date End Date Yris Romero MD [address] [place] [address] PCP - General Internal Medicine 07/25/18 Machine Ii Coremaker Relationship Specialty Start Date End Date Yris Romero MD [address] [place] [address] PCP - General Internal Medicine 07/25/18 Machine Ii Coremaker Relationship Specialty Start Date End Date Yris Romero MD [address] [place] [address] PCP - General Internal Medicine 07/25/18 FOR RECORDS PERTAINING TO PATIENTS WHO ARE OR HAVE BEEN ENROLLED IN A CHEMICAL DEPENDENCY/SUBSTANCEABUSE PROGRAM, SOME INFORMATION MAY BE OMITTED. This clinical summary was aggregated from multiple sources. Caution should be exercised in using it in the provision of clinical care. This summary normalizes information from multiple sources, and as a consequence, information in this document may materially change the coding, format and clinical context of patient data. In addition, data may be omitted in some cases. CLINICAL DECISIONS SHOULD BE BASED ON THE PRIMARY CLINICAL RECORDS. [employer] [facility]. provides no warranty or guarantee of the accuracy or completeness of information in this document.
[2023-09-05 02:05] VITALS: BP 158/68; PULSE 60; RESP 16; TEMP 36.7; O2SAT 98
== END 2023-09-05 02:08 | disposition home or self-care (01) ==
PROVIDERS: Emergency Provider Emergency Medicine; PCP Internal Medicine; Visit Provider Emergency Medicine
DX: S89.91XA Unspecified injury of right lower leg, initial encounter (principal); M25.461 Effusion, right knee; Z82.5 Family history of asthma and other chronic lower respiratory diseases; F17.200 Nicotine dependence, unspecified, uncomplicated; W03.XXXA Other fall on same level due to collision with another person, initial encounter; Y92.009 Unspecified place in unspecified non-institutional (private) residence as the place of occurrence of the external cause
CPT/HCPCS: 73552; 99283